=== PATIENT | female | born 1940 | race Caucasian/White ===

== ENCOUNTER → 2016-12-05 | Outpatient (CLI) | payer MEDICARE, BC ==
[2016-12-05 09:22] LABS: Basophils # (A) 0.1 k/uL (0-0.2); Basophils % (A) 1 %; CHCM 34.1; Eosinophils # (A) 0.1 k/uL (0-0.7); Eosinophils % (A) 2 %; HCT 39.6 % (34.0-46.0); HDW 2.78; HGB 13.1 gm/dL (11.4-16.0); Luc # (Auto) 0.18; Luc % (Auto) 3; Lymphocytes # (A) 2.3 k/uL (1.0-4.8); Lymphocytes % (A) 40 %; MCH 29.2 pg (25.0-35.0); MCV 88.6 fL (80.0-100.0); Mean Platelet Volume 7.4; Monocytes # (A) 0.4 k/uL (0-1.0); Monocytes % (A) 6 %; Neutrophils # (A) 2.6 k/uL (1.3-7.7); Neutrophils % (A) 47 %; RBC 4.47 m/uL (3.80-5.40); RDW 12.8 % (11.5-15.5); WBC 5.6 k/uL (3.8-10.6); WBC (Perox) 5.62
[2016-12-05 11:24] LABS: ALT 39 U/L (9-52); AST 26 U/L (14-36); Alkaline Phosphatase 64 U/L (38-126); Anion Gap 7 mmol/L; Blood Urea Nitrogen 10 mg/dL (7-17); C Reactive Protein <5.0 mg/L (<10.0); Calcium 9.3 mg/dL (8.4-10.2); Carbon Dioxide 31 mmol/L (22-30); Chloride 105 mmol/L (98-107); Cholesterol 158 mg/dL (<200); Creatine Kinase 39 U/L (30-135); Glucose 100 mg/dL (74-99); HDL Cholesterol 68 mg/dL (40-60); Non-African American GFR(MDRD) >60 (>60 ml/min/1.73 sqM); Potassium 4.1 mmol/L (3.5-5.1); Sodium 143 mmol/L (137-145); Total Bilirubin 0.6 mg/dL (0.2-1.3); Total Protein 6.7 g/dL (6.3-8.2); Triglycerides 137 mg/dL (<150)
[2016-12-05 11:48] LABS: Erythrocyte Sedimentation Rate 8 mm/hr (0-20)
== END | disposition home or self-care (01) ==
LOC: LABWHC1 08:47
PROVIDERS: ATTEND Internal Medicine
DX: E78.5 Hyperlipidemia, unspecified (principal); E03.9 Hypothyroidism, unspecified; E55.9 Vitamin D deficiency, unspecified; I10 Essential (primary) hypertension
CPT/HCPCS: 36415; 80053; 80061; 82306; 82550; 84443; 85025; 85652; 86140

== ENCOUNTER → 2017-09-19 | Outpatient (CLI) | payer MEDICARE, BC ==
--- NOTE | 2017-09-20 11:50 | MM ---
Reason for exam: screening (asymptomatic). Last mammogram was performed 1 year ago. History: Patient is postmenopausal. Family history of breast cancer in mother at age 70. Took hormonal contraceptives for 10 years beginning at age 25. Physical Findings: A clinical breast exam by your physician is recommended on an annual basis and results should be correlated with mammographic findings. MG 3D Screening Mammo W/Cad Bilateral CC and MLO view(s) were taken. Prior study comparison: September 17, 2016, bilateral MG screening mammo w CAD. September 15, 2015, bilateral MG screening mammo w CAD. The breast tissue is heterogeneously dense. This may lower the sensitivity of mammography. Finding: There are typically benign vascular, diffuse/scattered calcifications in both breasts. No significant changes in finding since September 17, 2016 and September 15, 2015. ASSESSMENT: Benign, BI-RAD 2 RECOMMENDATION: Routine screening mammogram of both breasts in 1 year.
== END | disposition home or self-care (01) ==
LOC: RADMAMWWP 09:38
PROVIDERS: ATTEND Internal Medicine
DX: Z12.31 Encounter for screening mammogram for malignant neoplasm of breast (principal)
CPT/HCPCS: 77063; G0202

== ENCOUNTER → 2018-01-20 | Outpatient (CLI) | payer MEDICARE, BC ==
[2018-01-20 08:29] LABS: Basophils % (A) 1 %; Eosinophils # (A) 0.1 k/uL (0-0.7); Eosinophils % (A) 2 %; HGB 12.3 gm/dL (11.4-16.0); Lymphocytes # (A) 1.9 k/uL (1.0-4.8); Lymphocytes % (A) 40 %; MCH 29.3 pg (25.0-35.0); MCHC 33.3 g/dL (31.0-37.0); MCV 87.9 fL (80.0-100.0); Mean Platelet Volume 7.4; Monocytes # (A) 0.4 k/uL (0-1.0); Monocytes % (A) 8 %; Neutrophils # (A) 2.1 k/uL (1.3-7.7); Neutrophils % (A) 46 %; Platelet Count 201 k/uL (150-450); RBC 4.21 m/uL (3.80-5.40); RDW 12.9 % (11.5-15.5); WBC 4.7 k/uL (3.8-10.6)
[2018-01-20 11:20] LABS: Erythrocyte Sedimentation Rate 7 mm/hr (0-20)
[2018-01-20 11:46] LABS: ALT 28 U/L (9-52); AST 28 U/L (14-36); Albumin 3.7 g/dL (3.5-5.0); Alkaline Phosphatase 58 U/L (38-126); Anion Gap 9 mmol/L; Blood Urea Nitrogen 12 mg/dL (7-17); C Reactive Protein 5.1 mg/L (<10.0); Calcium 9.3 mg/dL (8.4-10.2); Carbon Dioxide 32 mmol/L (22-30); Chloride 104 mmol/L (98-107); Cholesterol 135 mg/dL (<200); Creatine Kinase 87 U/L (30-135); Glucose 92 mg/dL (74-99); HDL Cholesterol 63 mg/dL (40-60); LDL Cholesterol,Calculated 51 mg/dL (0-99); Sodium 145 mmol/L (137-145); Total Bilirubin 0.5 mg/dL (0.2-1.3); Total Protein 6.2 g/dL (6.3-8.2); Triglycerides 103 mg/dL (<150)
== END | disposition home or self-care (01) ==
LOC: LABWHC1 08:05
PROVIDERS: ATTEND Internal Medicine
DX: Z00.00 Encounter for general adult medical examination without abnormal findings (principal); D64.9 Anemia, unspecified; E78.5 Hyperlipidemia, unspecified; I10 Essential (primary) hypertension; E55.9 Vitamin D deficiency, unspecified
CPT/HCPCS: 36415; 80053; 80061; 82306; 82550; 85025; 85652; 86140

== ENCOUNTER 2018-11-19 17:37 | Observation (INO) | payer BC, MEDICARE ==
[2018-11-19] MEDS ORDERED: DEXAMETHASONE 4 MG TAB PO STA (18:07)
[2018-11-19] MEDS ORDERED: IPRATROPIUM-ALBUTEROL 3 ML NEB INHALATION STA ×2 (18:07→19:24)
--- NOTE | 2018-11-19 18:11 | ED ---
General Adult HPI - General Source: patient, EMS, RN notes reviewed Mode of arrival: EMS Limitations: no limitations <Eloise Odom - Last Filed: 11/19/18 21:49> <Zeb Santos - Last Filed: 11/19/18 23:14> - General Chief complaint: Upper Respiratory Infection Stated complaint: Congestion Time Seen by Provider: 11/19/18 17:58 - History of Present Illness Initial comments: Patient is a 78-year-old female who presents the emergency department with complaint of cough and congestion for 3 days. She reports taking cough medicine at home, last dose was about 4 hours ago. She reports calling the EMS because she had mucus stuck in her airway and she was having trouble breathing. She denies any history of pulmonary disease. Patient denies any recent fever, chills, chest pain, back pain, abdominal pain, nausea or vomiting, numbness or tingling, headaches or visual changes, or any other complaints. (Eloise Odom) - Related Data Home Medications Medication Instructions Recorded Confirmed Aspirin [[place] Aspirin EC] 81 mg PO DAILY 11/19/18 11/19/18 Calcium Carbonate [Calcium] 1,200 mg PO DAILY 11/19/18 11/19/18 Metoprolol Succinate [Toprol Xl] 50 mg PO DAILY 11/19/18 11/19/18 Multivitamins, Thera [Multivitamin 1 tab PO DAILY 11/19/18 11/19/18 (formulary)] [place]-3 Fatty Acids/Fish Oil [Fish 1 tab PO DAILY 11/19/18 11/19/18 Oil 1,000 mg Softgel] Simvastatin [Zocor] 20 mg PO HS 11/19/18 11/19/18 Telmisartan [Micardis] 80 mg PO DAILY 11/19/18 11/19/18 amLODIPine [Norvasc] 5 mg PO HS 11/19/18 11/19/18 Allergies Allergy/AdvReac Type Severity Reaction Status Date / Time No Known Allergies Allergy Verified 11/19/18 18:37 Review of Systems ROS Other: All systems not noted in ROS Statement are negative. <Eloise Odom - Last Filed: 11/19/18 21:49> ROS Other: All systems not noted in ROS Statement are negative. <Zeb Santos - Last Filed: 11/19/18 23:14> ROS Statement: Those systems with pertinent positive or pertinent negative responses have been documented in the HPI. Past Medical History Past Medical History: Hypertension History of Any Multi-Drug Resistant Organisms: None Reported Past Surgical History: No Surgical Hx Reported Past Psychological History: No Psychological Hx Reported Smoking Status: Never smoker Past Alcohol Use History: None Reported Past Drug Use History: None Reported <Eloise Odom - Last Filed: 11/19/18 21:49> General Exam Limitations: no limitations General appearance: alert, in no apparent distress Head exam: Present: atraumatic, normocephalic Eye exam: Present: normal appearance, PERRL ENT exam: Present: normal exam, normal oropharynx, TM's normal bilaterally, normal external ear exam Neck exam: Present: normal inspection Respiratory exam: Present: rales (Middle and lower lung warner bilaterally.) Cardiovascular Exam: Present: regular rate, normal rhythm Neurological exam: Present: alert, oriented X3 Psychiatric exam: Present: normal affect, normal mood Skin exam: Present: warm, dry <Eloise Odom E - Last Filed: 11/19/18 21:49> Vital Signs 11/19/18 11/19/18 11/19/18 17:51 18:05 18:51 Temperature 98.6 F Pulse Rate 81 81 Respiratory 20 20 Rate Blood Pressure 138/84 O2 Sat by Pulse 93 L Oximetry 11/19/18 11/19/18 11/19/18 19:01 19:32 19:41 Temperature Pulse Rate 88 80 84 Respiratory Rate Blood Pressure O2 Sat by Pulse Oximetry 11/19/18 11/19/18 20:30 21:25 Temperature Pulse Rate 94 97 Respiratory 18 20 Rate Blood Pressure 138/62 O2 Sat by Pulse 92 L 93 L Oximetry Medical Decision Making <Eloise Odom E - Last Filed: 11/19/18 21:49> - Lab Data Result diagrams: 11/19/18 22:00 11/19/18 22:00 <Zeb Santos - Last Filed: 11/19/18 23:14> - Medical Decision Making DuoNeb 2 and dexamethasone given. Influenza A and B are negative. Rapid strep is negative. Chest x-ray reveals no active cardiopulmonary disease. Patient is hypoxic. Will admit to Dr. Toth. Case discussed in detail with attending physician Dr. Santos. (Eloise Odom) Discussed patient case with Dr. Toth who requested CT angiogram of the chest to rule out pulmonary emboli. No findings of PE on CT angios. (Zeb Santos) - Lab Data Lab Results 11/19/18 11/19/18 11/19/18 Range/Units 19:48 19:48 22:00 WBC 8.2 (3.8-10.6) k/uL RBC 4.33 (3.80-5.40) m/uL Hgb 12.8 (11.4-16.0) gm/dL Hct 37.9 (34.0-46.0) % MCV 87.5 (80.0-100.0) fL MCH 29.6 (25.0-35.0) pg MCHC 33.8 (31.0-37.0) g/dL RDW 13.0 (11.5-15.5) % Plt Count 166 (150-450) k/uL Neutrophils % 91 % Lymphocytes % 6 % Monocytes % 2 % Eosinophils % 0 % Basophils % 0 % Neutrophils # 7.4 (1.3-7.7) k/uL Lymphocytes # 0.5 L (1.0-4.8) k/uL Monocytes # 0.2 (0-1.0) k/uL Eosinophils # 0.0 (0-0.7) k/uL Basophils # 0.0 (0-0.2) k/uL Sodium (137-145) mmol/L Potassium (3.5-5.1) mmol/L Chloride (98-107) mmol/L Carbon Dioxide (22-30) mmol/L Anion Gap mmol/L BUN (7-17) mg/dL Creatinine (0.52-1.04) mg/dL Est GFR (CKD-EPI)AfAm (>60 ml/min/1.73 sqM) Est GFR (CKD-EPI)NonAf (>60 ml/min/1.73 sqM) Glucose (74-99) mg/dL Calcium (8.4-10.2) mg/dL Total Bilirubin (0.2-1.3) mg/dL AST (14-36) U/L ALT (9-52) U/L Alkaline Phosphatase (38-126) U/L Total Protein (6.3-8.2) g/dL Albumin (3.5-5.0) g/dL Influenza Type A RNA Not Detected (Not Detectd) Influenza Type B (PCR) Not Detected (Not Detectd) Group A Strep Rapid Negative (Negative) 11/19/18 Range/Units 22:00 WBC (3.8-10.6) k/uL RBC (3.80-5.40) m/uL Hgb (11.4-16.0) gm/dL Hct (34.0-46.0) % MCV (80.0-100.0) fL MCH (25.0-35.0) pg MCHC (31.0-37.0) g/dL RDW (11.5-15.5) % Plt Count (150-450) k/uL Neutrophils % % Lymphocytes % % Monocytes % % Eosinophils % % Basophils % % Neutrophils # (1.3-7.7) k/uL Lymphocytes # (1.0-4.8) k/uL Monocytes # (0-1.0) k/uL Eosinophils # (0-0.7) k/uL Basophils # (0-0.2) k/uL Sodium 138 (137-145) mmol/L Potassium 3.5 (3.5-5.1) mmol/L Chloride 103 (98-107) mmol/L Carbon Dioxide 24 (22-30) mmol/L Anion Gap 11 mmol/L BUN 13 (7-17) mg/dL Creatinine 0.70 (0.52-1.04) mg/dL Est GFR (CKD-EPI)AfAm >90 (>60 ml/min/1.73 sqM) Est GFR (CKD-EPI)NonAf 83 (>60 ml/min/1.73 sqM) Glucose 171 H (74-99) mg/dL Calcium 9.1 (8.4-10.2) mg/dL Total Bilirubin 0.5 (0.2-1.3) mg/dL AST 26 (14-36) U/L ALT 34 (9-52) U/L Alkaline Phosphatase 76 (38-126) U/L Total Protein 6.2 L (6.3-8.2) g/dL Albumin 3.7 (3.5-5.0) g/dL Influenza Type A RNA (Not Detectd) Influenza Type B (PCR) (Not Detectd) Group A Strep Rapid (Negative) Disposition Is patient prescribed a controlled substance at d/c from ED?: No <Eloise Odom E - Last Filed: 11/19/18 21:49> <Zeb Santos - Last Filed: 11/19/18 23:14> Clinical Impression: Hypoxia Disposition: ADMITTED IP TO THIS HOSP
--- NOTE | 2018-11-19 19:27 | XR ---
EXAMINATION TYPE: XR chest 2V DATE OF EXAM: 11/19/2018 COMPARISON: NONE HISTORY: Cough TECHNIQUE: Frontal and lateral views of the chest are obtained. FINDINGS: Heart size is normal. Lungs are clear. Thoracic aorta is atheromatous. There is no pleural effusion. Bony thorax is intact. There is osteopenia. IMPRESSION: No active cardiopulmonary disease.
[2018-11-19] MEDS ORDERED: NALOXONE 0.4 MG/ML 1 ML VIAL IV PRN (21:34)
[2018-11-19] MEDS ORDERED: ACETAMINOPHEN TAB 325 MG TAB PO PRN (21:41)
[2018-11-19 22:22] LABS: Basophils % (A) 0 %; Eosinophils % (A) 0 %; HCT 37.9 % (34.0-46.0); HGB 12.8 gm/dL (11.4-16.0); Lymphocytes # (A) 0.5 k/uL (1.0-4.8); Lymphocytes % (A) 6 %; MCH 29.6 pg (25.0-35.0); MCHC 33.8 g/dL (31.0-37.0); MCV 87.5 fL (80.0-100.0); Mean Platelet Volume 6.8; Monocytes # (A) 0.2 k/uL (0-1.0); Monocytes % (A) 2 %; Neutrophils # (A) 7.4 k/uL (1.3-7.7); Neutrophils % (A) 91 %; Platelet Count 166 k/uL (150-450); RBC 4.33 m/uL (3.80-5.40); WBC 8.2 k/uL (3.8-10.6)
[2018-11-19 22:47] LABS: ALT 34 U/L (9-52); AST 26 U/L (14-36); Albumin 3.7 g/dL (3.5-5.0); Alkaline Phosphatase 76 U/L (38-126); Anion Gap 11 mmol/L; Blood Urea Nitrogen 13 mg/dL (7-17); Calcium 9.1 mg/dL (8.4-10.2); Carbon Dioxide 24 mmol/L (22-30); Chloride 103 mmol/L (98-107); Glucose 171 mg/dL (74-99); Potassium 3.5 mmol/L (3.5-5.1); Sodium 138 mmol/L (137-145); Total Bilirubin 0.5 mg/dL (0.2-1.3); Total Protein 6.2 g/dL (6.3-8.2)
--- NOTE | 2018-11-19 23:09 | CT ---
EXAMINATION TYPE: CT angio chest DATE OF EXAM: 11/19/2018 10:56 PM COMPARISON: None HISTORY: c/o chest congestion CT DLP: 215.8 mGycm Automated exposure control for dose reduction was used. CONTRAST: CTA scan of the thorax is performed with IV Contrast, patient injected with 67cc mL of Isovue 300, pu lmonary embolism protocol. There are 3-D post processed images.. FINDINGS: There is some minimal subsegmental atelectasis at the lung bases. There is no pleural effusion. There is no pericardial effusion. There is normal contrast opacification of the pulmonary arteries. I see no filling defect. There are no hilar masses. There is no mediastinal adenopathy. Ascending aorta maribel sures 3.6 cm. There is no evidence of aortic aneurysm or dissection. There are numerous variable sized cysts throughout the liver. There is small hiatal hernia. The bony thorax is intact. IMPRESSION: NO EVIDENCE OF PULMONARY EMBOLISM. NUMEROUS HEPATIC CYSTS.
[2018-11-20] MEDS: SODIUM CHLORIDE 0.9% 1,000 ML IV SCH ×3 (02:16→21:41)
[2018-11-20 08:21] LABS: Basophils % (A) 0 %; Eosinophils % (A) 0 %; HCT 40.9 % (34.0-46.0); HGB 13.5 gm/dL (11.4-16.0); Lymphocytes # (A) 0.8 k/uL (1.0-4.8); Lymphocytes % (A) 14 %; MCH 29.5 pg (25.0-35.0); MCHC 33.1 g/dL (31.0-37.0); MCV 89.1 fL (80.0-100.0); Mean Platelet Volume 6.8; Monocytes # (A) 0.2 k/uL (0-1.0); Monocytes % (A) 4 %; Neutrophils # (A) 4.7 k/uL (1.3-7.7); Neutrophils % (A) 81 %; Platelet Count 191 k/uL (150-450); RBC 4.59 m/uL (3.80-5.40); RDW 12.8 % (11.5-15.5); WBC 5.8 k/uL (3.8-10.6)
[2018-11-20 08:50] LABS: ALT 25 U/L (9-52); AST 25 U/L (14-36); Albumin 3.8 g/dL (3.5-5.0); Alkaline Phosphatase 67 U/L (38-126); Anion Gap 9 mmol/L; Blood Urea Nitrogen 14 mg/dL (7-17); Carbon Dioxide 28 mmol/L (22-30); Chloride 105 mmol/L (98-107); Glucose 130 mg/dL (74-99); Potassium 3.8 mmol/L (3.5-5.1); Sodium 142 mmol/L (137-145); Total Bilirubin 0.4 mg/dL (0.2-1.3); Total Protein 6.4 g/dL (6.3-8.2)
[2018-11-20] MEDS ORDERED: NON-FORMULARY DRUG (Omega-3 Fatty Acids/Fish Oil [Fish Oil 1,000 Mg Softgel] 1 TAB) PO SCH (09:00)
[2018-11-20] MEDS ORDERED: LOSARTAN 50 MG TAB PO SCH (09:00)
[2018-11-20] MEDS: CALCIUM CARBONATE 500 MG CHEWABLE PO SCH (10:32)
[2018-11-20] MEDS: METOPROLOL SUCCINATE (ER) 50 MG TAB.ER.24H PO SCH (10:33)
[2018-11-20] MEDS: ASPIRIN 81 MG PO SCH (10:33)
[2018-11-20] MEDS: AZITHROMYCIN 500 MG TAB PO SCH (11:20)
[2018-11-20] MEDS: MULTIVITAMINS, THERA 1 EACH TAB PO SCH (12:38)
[2018-11-20] MEDS ORDERED: ATORVASTATIN 10 MG TAB PO SCH (21:00)
[2018-11-20] MEDS ORDERED: amLODIPine 5 MG TAB PO SCH (21:00)
[2018-11-20] MEDS: BUDESONIDE 0.5 MG/2 ML NEBU INHALATION SCH (21:04)
--- NOTE | 2018-11-20 21:10 | HP ---
HISTORY AND PHYSICAL FULL CODE. Her height is 5 feet 5 inches, weight 57.606 kg, BSA 1.63 m2, BMI is 21.1 kg/m2. ALLERGIES: UNKNOWN. The patient presented to the emergency room, brought by ambulance, with the underlying complaint of cough and congestion for the last 3 days. Four hours prior to presentation she felt that she was choking with mucus secretions in her throat, and her airways have been filling up, obstructed. She called the ambulance. She has no history of lung disease in the past. No fever, no chills, except that recently she has underlying history of upper respiratory tract infection. She denied any abdominal pain or chest pain or chills. No nausea, no vomiting. No numbness, no tingling. No visual changes. But she was significantly short of breath. Her current list of home medications: 1. Amlodipine 5 mg at bedtime. 2. Simvastatin 20 mg at bedtime. 3. Calcium carbonate 1200 mg daily. 4. [place]-3 fatty acids 1000 soft gel once a day. 5. Aspirin 81 mg. 6. Multivitamin 1 a day. 7. Micardis 80 mg daily. 8. Metoprolol succinate 50 mg daily. FAMILY HISTORY: Her and she is a . PAST MEDICAL HISTORY: Hypertension. No surgical history. No psychological history. Never smoked in her life. No illicit drugs or drinking alcohol. REVIEW OF SYSTEMS: Reviewed, 14 points, with no symptoms except feeling the choking in her throat with the secretions and shortness of breath. On her arrival, I did discuss it with the ER physician, and I requested that patient, especially with the sudden onset, to rule out PE and subsequently the patient had CT angiogram. She had CT angiogram and chest x-ray was done prior. The chest x-ray showed no active pulmonary disease to explain the shortness of breath and wheezing. The treatment in the emergency room did not lead to resolution. Subsequently she had inhalation therapy, with no resolution. CT scan of the chest with angiogram was done and there was no evidence of pulmonary embolism; however, they found numerous hepatic cysts. No evidence of aortic aneurysm. They also saw minimal subsegmental atelectasis in the lung bases without effusion and normal contrast opacification of the pulmonary artery. On the physical exam, her vital signs on admission were temperature 97.9, pulse 80 respiratory rate 16 and heart rate was regular sinus. Her blood pressure was 123/62 with the saturation ranging between 92% and 91%. However, it was reported that on admission in the ER, she was hypoxemic with PO2 of 93% on presentation. They considered that low at the time of the presentation. They did laboratory as well and found that potassium was borderline at 3.5, and her estimated glomerular filtration rate was more than 90. Her blood sugar not random 171 and her total protein and albumin were normal and liver enzymes were normal. She was seen first by the PA, Eloise Odom. Her white count on admission was 8.2, hemoglobin 12.8 with hematocrit 37.9. BUN 13, creatinine 0.7, and carbon dioxide 24. Oxygen saturation was 92. They stated that they did several inhalation therapies with DuoNeb, with no improvement, and she was subsequently admitted on observation status. Patient was seen in the morning today on November 20, 2018. The patient was conscious, alert, oriented, in no acute respiratory distress. HEENT: The head was normocephalic, atraumatic, and the oropharynx was negative with dentures. Neck was supple. Normal hearing and no new lymphadenopathy. No JVD. Trachea midline. The chest had minimal scattered wheezes bilaterally and she is using currently the inhalation therapy and we added Pulmicort 0.5 mg nebulizer twice a day to the DuoNeb nebulizer. HEART: PMI in the fifth intercostal space. Normal S1, S2. Vital signs on exam at that time were 115/68 blood pressure with a mean 83. Her temperature was 97 and her pulse rate 77 regular, and respiratory rate was 16, normal, non-labored. Her abdomen was soft. Positive bowel sounds. No organ enlargement. EXTREMITIES: No edema. Positive pulses. ASSESSMENT: 1. Underlying viral syndrome, status post secretion obstruction to the laryngeal area. That was resolved. 2. Underlying acute asthmatic bronchitis secondary to the viral syndrome. PLAN: We will have her on observation today and add the budesonide inhalation twice a day 0.5 mg with the nebulizer. Continue the ambulation as tolerated. Subsequently, if improvement in general, she will be discharged tomorrow. Patient admitted on observation status. MMODL / IJN: [id number] /
[2018-11-20] MEDS ORDERED: guaiFENesin SYRUP 100MG/5ML 200 MG/10 ML CUP PO PRN (21:30)
[2018-11-21 01:48] VITALS: TEMP 98.3
[2018-11-21] MEDS: SODIUM CHLORIDE 0.9% 1,000 ML IV SCH ×2 (02:32→04:54)
[2018-11-21 07:55] VITALS: BP 143/78; RESP 18
[2018-11-21] MEDS ORDERED: LOSARTAN 50 MG TAB PO SCH (09:00)
[2018-11-21] MEDS: BUDESONIDE 0.5 MG/2 ML NEBU INHALATION SCH (09:21)
[2018-11-21 09:33] VITALS: PULSE 72
[2018-11-21] MEDS: AZITHROMYCIN 500 MG TAB PO SCH (09:48)
[2018-11-21] MEDS: ASPIRIN 81 MG PO SCH (09:49)
[2018-11-21] MEDS: MULTIVITAMINS, THERA 1 EACH TAB PO SCH (09:49)
[2018-11-21] MEDS: METOPROLOL SUCCINATE (ER) 50 MG TAB.ER.24H PO SCH (09:49)
[2018-11-21] MEDS: CALCIUM CARBONATE 500 MG CHEWABLE PO SCH (09:49)
[2018-11-21] MEDS ORDERED: ALBUTEROL NEBULIZED 2.5 MG/3 ML INHALATION SCH (12:00)
--- NOTE | 2018-11-21 12:53 | DS ---
DISCHARGE SUMMARY DATA: She is a FULL CODE. Her height is 5 foot 5 inches, weight is 57.606 kg, BSA 1.63 m2, BMI 21.1 kg/m2. Allergy is unknown. FINAL DIAGNOSES: 1. Tracheobronchitis with the increased secretion unable to cough, plugging the upper respiratory tract. 2. Wheezing with the associated asthmatic bronchitis. 3. Underlying hypertension, controlled. 4. Underlying history of asthma. 5. Ambulatory. DISCHARGE MEDICATIONS: 1. Inhaler albuterol 90 mcg 2 puffs q.i.d. 2. Symbicort 160/4.5 mg 2 puffs inhaler twice a day. 3. Azithromycin 500 mg 5 tablets total, once a day. Followup Saturday or Saturday next week. Continue home medication. HOSPITAL COURSE: Patient admitted through the emergency room with underlying mucus, has been started with the upper respiratory tract infection and viral syndrome and she felt at the time that she was unable to expectorate the secretion and felt choking and at that time, she called the ambulance and brought her to the hospital, found that she has hypoxemia as well as they found that she had scattered wheezing. The treated her in the ER with no resolution. Subsequently, called me to admit the patient for observation on the observation status. Patient admitted on observation status, adjusted her medication and inhalation therapy and started also budesonide twice a day nebulizers 0.5 mg and started the azithromycin. Patient was ambulatory and no restriction for movement and subsequently she did well and today stable general condition on November 21, 2018. On the exam on discharge, she has vital signs stable with temperature 98.3, pulse 72, respiratory rate 18 and blood pressure 143/78, and a pulse ox was 94% on room air. Also, her underlying laboratory yesterday when she was she admitted on 2214 hours on November 19, 2018 before midnight and stayed on the and discharge on the . Her white count was normal and hemoglobin stable 13.5, and her liver enzyme was normal and total protein on the 20 of November was 6.4. Had a negative influenza A & B and no strep was present. As patient is stable general condition, discharge home today to follow up on Saturday or Saturday in the office and she was admitted and discharged on observation status. MMODL / IJN: [id number] /
[2018-11-21] MEDS ORDERED: SYMBICORT 160-4.5 MCG INHALER INHALATION SCH (20:00)
== END 2018-11-21 11:24 | disposition home or self-care (01) ==
LOC: EC 17:37 → 4SSUR 22:21
PROVIDERS: ADMIT Internal Medicine; ATTEND Internal Medicine
DX: J20.8 Acute bronchitis due to other specified organisms (principal); J45.998 Other asthma; R09.02 Hypoxemia; I10 Essential (primary) hypertension; Z79.82 Long term (current) use of aspirin; Z79.899 Other long term (current) drug therapy
CPT/HCPCS: 96360; 96361 ×2; 99285; 36415; 94640 ×4; 80053 ×2; 85025 ×2; 87081; 87430; 87502; 71046; 71275; G0378 ×3; J8540; Q9967

== ENCOUNTER → 2019-01-19 | Outpatient (CLI) | payer MEDICARE ==
[2019-01-19 10:51] LABS: Basophils # (A) 0.1 k/uL (0-0.2); Basophils % (A) 1 %; Eosinophils # (A) 0.1 k/uL (0-0.7); Eosinophils % (A) 2 %; HCT 38.3 % (34.0-46.0); Lymphocytes # (A) 1.9 k/uL (1.0-4.8); Lymphocytes % (A) 38 %; MCHC 33.8 g/dL (31.0-37.0); MCV 88.8 fL (80.0-100.0); Mean Platelet Volume 6.5; Monocytes # (A) 0.3 k/uL (0-1.0); Monocytes % (A) 7 %; Neutrophils # (A) 2.5 k/uL (1.3-7.7); Neutrophils % (A) 50 %; Platelet Count 205 k/uL (150-450); RBC 4.32 m/uL (3.80-5.40); RDW 12.9 % (11.5-15.5)
[2019-01-19 13:35] LABS: Erythrocyte Sedimentation Rate 11 mm/hr (0-20)
[2019-01-19 16:52] LABS: Vitamin D 25 Hydroxy 50.5 ng/mL (30.0-100.0)
[2019-01-19 17:08] LABS: Immunoglobulin E 27.5 IU/mL (0.00-114.00)
[2019-01-19 18:28] LABS: C Reactive Protein <0.4 mg/dL (0.0-0.8); Carbon Dioxide 27.9 mmol/L (21.6-31.8); Chloride 108 mmol/L (96-109); Cholesterol 142 mg/dL (0-200); Creatine Kinase 25 U/L (26-186); Glucose 87 mg/dL (70-110); LDL Cholesterol,Calculated 64.8 mg/dL (0.0-131.0); Potassium 4.3 mmol/L (3.5-5.5); Sodium 141 mmol/L (135-145)
[2019-01-19 18:29] LABS: ALT 20 U/L (8-44); AST 24 U/L (13-35); Albumin/Globulin Ratio 2.33 (1.60-3.17); Alkaline Phosphatase 63 U/L (41-126); Calcium 9.4 mg/dL (8.7-10.3); Globulin 1.8 g/dL (1.6-3.3); Phosphorus 3.7 mg/dL (2.4-5.1); Total Bilirubin 0.7 mg/dL (0.3-1.2)
== END ==
LOC: LABWHC1 09:26
PROVIDERS: ATTEND Internal Medicine
DX: J45.909 Unspecified asthma, uncomplicated (principal); I10 Essential (primary) hypertension; E55.9 Vitamin D deficiency, unspecified; J44.9 Chronic obstructive pulmonary disease, unspecified; E78.5 Hyperlipidemia, unspecified
CPT/HCPCS: 36415; 80053; 80061; 82306; 82550; 82785; 83735; 84100; 84443; 85025; 85652; 86140

== ENCOUNTER → 2019-09-23 | Outpatient (CLI) | payer MEDICARE ==
--- NOTE | 2019-09-24 09:26 | MM ---
Reason for exam: screening (asymptomatic). Last mammogram was performed 1 year ago. History: Patient is postmenopausal. Family history of breast cancer in mother at age 70. Took hormonal contraceptives for 10 years beginning at age 25. Physical Findings: A clinical breast exam by your physician is recommended on an annual basis and results should be correlated with mammographic findings. MG 3D Screening Mammo W/Cad Bilateral CC and MLO view(s) were taken. Prior study comparison: September 22, 2018, bilateral MG 3d screening mammo w/cad. September 19, 2017, bilateral MG 3d screening mammo w/cad. The breast tissue is heterogeneously dense. This may lower the sensitivity of mammography. Stable benign calcifications. There is no discrete abnormality. No significant changes when compared with prior studies. ASSESSMENT: Benign, BI-RAD 2 RECOMMENDATION: Routine screening mammogram of both breasts in 1 year.
== END | disposition home or self-care (01) ==
LOC: RADMAMWWP 09:53
PROVIDERS: ATTEND Internal Medicine
DX: Z12.31 Encounter for screening mammogram for malignant neoplasm of breast (principal)
CPT/HCPCS: 77063; 77067

== ENCOUNTER → 2020-04-29 | Outpatient (CLI) | payer MEDICARE ==
[2020-04-29 09:25] LABS: Basophils # (A) 0.1 k/uL (0-0.2); Basophils % (A) 1 %; Eosinophils # (A) 0.1 k/uL (0-0.7); Eosinophils % (A) 1 %; HCT 40.6 % (34.0-46.0); HGB 12.9 gm/dL (11.4-16.0); Lymphocytes # (A) 2.2 k/uL (1.0-4.8); Lymphocytes % (A) 38 %; MCH 28.8 pg (25.0-35.0); MCHC 31.8 g/dL (31.0-37.0); MCV 90.6 fL (80.0-100.0); Mean Platelet Volume 7.2; Monocytes # (A) 0.4 k/uL (0-1.0); Monocytes % (A) 7 %; Neutrophils # (A) 2.8 k/uL (1.3-7.7); Neutrophils % (A) 49 %; Platelet Count 213 k/uL (150-450); RBC 4.48 m/uL (3.80-5.40); RDW 12.7 % (11.5-15.5); WBC 5.7 k/uL (3.8-10.6)
[2020-04-29 12:33] LABS: Erythrocyte Sedimentation Rate 12 mm/hr (0-20)
[2020-04-29 16:53] LABS: ALT 20 U/L (8-44); AST 25 U/L (13-35); African American GFR (CKD) 80.7 (60.0-200.0); Albumin/Globulin Ratio 2.26 (1.60-3.17); Alkaline Phosphatase 73 U/L (41-126); C Reactive Protein <0.4 mg/dL (0.0-0.8); Calcium 9.2 mg/dL (8.7-10.3); Carbon Dioxide 32.8 mmol/L (21.6-31.8); Chloride 104 mmol/L (96-109); Chol/HDL Ratio 2.66; Cholesterol 165 mg/dL (0-200); Globulin 1.9 g/dL (1.6-3.3); Glucose 91 mg/dL (70-110); LDL Cholesterol,Calculated 81.6 mg/dL (0.0-131.0); Non-African American GFR(CKD) 69.6 (60.0-200.0); Potassium 4.2 mmol/L (3.5-5.5); Sodium 141 mmol/L (135-145); Total Bilirubin 0.7 mg/dL (0.3-1.2); Total Protein 6.2 g/dL (6.2-8.2)
[2020-04-29 17:03] LABS: Creatine Kinase 46 U/L (26-186)
== END | disposition home or self-care (01) ==
LOC: LABWHC1 08:43
PROVIDERS: ATTEND Internal Medicine
DX: I10 Essential (primary) hypertension (principal); E87.8 Other disorders of electrolyte and fluid balance, not elsewhere classified; E78.5 Hyperlipidemia, unspecified
CPT/HCPCS: 36415; 80053; 80061; 82550; 85025; 85652; 86140

== ENCOUNTER → 2020-08-09 | Outpatient (CLI) | payer MEDICARE ==
--- NOTE | 2020-08-09 10:24 | XR ---
EXAMINATION TYPE: XR Hip Bilateral Complete DATE OF EXAM: 08/09/2020 COMPARISON: NONE HISTORY: Pain TECHNIQUE: 2 views of each hip is submitted FINDINGS: There is no evidence of erosive change or acute fracture. Mild concentric narrowing of the joint space. No erosive change. Mild hypertrophic change of the acet abulum. Mild diffuse osteopenia. IMPRESSION: 1. 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
== END | disposition home or self-care (01) ==
LOC: RADXRMAIN 09:43
PROVIDERS: ATTEND Internal Medicine
DX: M16.0 Bilateral primary osteoarthritis of hip (principal)
CPT/HCPCS: 73521

== ENCOUNTER → 2020-10-17 | Outpatient (CLI) | payer MEDICARE ==
--- NOTE | 2020-10-18 14:26 | MM ---
Reason for exam: screening (asymptomatic). Last mammogram was performed 1 year and 1 month ago. History: Patient is postmenopausal. Family history of breast cancer in mother at age 70. Took hormonal contraceptives for 10 years beginning at age 25. Physical Findings: A clinical breast exam by your physician is recommended on an annual basis and results should be correlated with mammographic findings. MG 3D Screening Mammo W/Cad Bilateral CC and MLO view(s) were taken. Prior study comparison: September 23, 2019, bilateral MG 3d screening mammo w/cad. September 22, 2018, bilateral MG 3d screening mammo w/cad. The breast tissue is heterogeneously dense. This may lower the sensitivity of mammography. No significant changes when compared with prior studies. ASSESSMENT: Benign, BI-RAD 2 RECOMMENDATION: Routine screening mammogram of both breasts in 1 year.
== END | disposition home or self-care (01) ==
LOC: RADMAMWWP 13:13
PROVIDERS: ATTEND Internal Medicine
DX: Z12.31 Encounter for screening mammogram for malignant neoplasm of breast (principal)
CPT/HCPCS: 77063; 77067

== ENCOUNTER → 2021-05-15 | Outpatient (CLI) | payer MEDICARE ==
[2021-05-15 10:20] LABS: Protein/Creatinine Ratio,Urine 0.213
[2021-05-15 14:37] LABS: Basophils # (A) 0.05 X 10*3/uL (0.00-0.10); Basophils % (A) 0.8 %; Eosinophils # (A) 0.07 X 10*3/uL (0.04-0.35); Eosinophils % (A) 1.1 %; HGB 13.4 g/dL (12.0-15.0); Lymphocytes # (A) 2.47 X 10*3/uL (0.90-5.00); Lymphocytes % (A) 40.6 %; MCH 30.1 pg (27.0-32.0); MCHC 33.5 g/dL (32.0-37.0); MCV 89.9 fL (80.0-97.0); Mean Platelet Volume 10.1 fL (9.5-12.2); Monocytes % (A) 8.2 %; Neutrophils # (A) 2.99 X 10*3/uL (1.80-7.70); Neutrophils % (A) 49.1 %; Platelet Count 219 X 10*3/uL (140-440); RBC 4.45 X 10*6/uL (4.10-5.20); RDW 12.9 % (11.5-14.5); WBC 6.09 X 10*3/uL (4.50-10.00)
[2021-05-15 15:12] LABS: ALT 23 U/L (8-44); AST 29 U/L (13-35); African American GFR (CKD) 80.1 (60.0-200.0); Alkaline Phosphatase 78 U/L (41-126); BUN/Creat Ratio 13.75 Ratio (12.00-20.00); C Reactive Protein <0.4 mg/dL (0.0-0.8); Calcium 9.2 mg/dL (8.7-10.3); Carbon Dioxide 25.2 mmol/L (21.6-31.8); Chloride 108 mmol/L (96-109); Chol/HDL Ratio 2.53; Cholesterol 157 mg/dL (0-200); Creatine Kinase 56 U/L (26-186); Glucose 119 mg/dL (70-110); Non-African American GFR(CKD) 69.1 (60.0-200.0); Potassium 3.7 mmol/L (3.5-5.5); Sodium 144 mmol/L (135-145); Total Bilirubin 0.6 mg/dL (0.3-1.2); Total Protein 6.4 g/dL (6.2-8.2)
[2021-05-15 16:41] LABS: Erythrocyte Sedimentation Rate 10 mm/Hr (0-30)
== END | disposition home or self-care (01) ==
LOC: LABWHC1 08:57
PROVIDERS: ATTEND Internal Medicine
DX: Z00.00 Encounter for general adult medical examination without abnormal findings (principal); I10 Essential (primary) hypertension; E78.5 Hyperlipidemia, unspecified; D64.9 Anemia, unspecified; E55.9 Vitamin D deficiency, unspecified
CPT/HCPCS: 36415; 80053; 80061; 82306; 82550; 82570; 84156; 85025; 85652; 86140

== ENCOUNTER → 2022-02-22 | Outpatient (CLI) | payer MEDICARE ==
--- NOTE | 2022-02-23 12:22 | MM ---
Reason for exam: screening (asymptomatic). Last mammogram was performed 1 year and 4 months ago. History: Patient is postmenopausal. Family history of breast cancer in mother at age 70. Took hormonal contraceptives for 10 years beginning at age 25. Physical Findings: A clinical breast exam by your physician is recommended on an annual basis and results should be correlated with mammographic findings. MG 3D Screening Mammo W/Cad Bilateral CC and MLO view(s) were taken. Prior study comparison: October 17, 2020, bilateral MG 3d screening mammo w/cad. September 23, 2019, bilateral MG 3d screening mammo w/cad. The breast tissue is heterogeneously dense. This may lower the sensitivity of mammography. Finding: There are typically benign vascular, round, linear calcifications in both breasts. There is no discrete abnormality. ASSESSMENT: Benign, BI-RAD 2 RECOMMENDATION: Routine screening mammogram of both breasts in 1 year.
== END | disposition home or self-care (01) ==
LOC: RADMAMWWP 13:13
PROVIDERS: ATTEND Internal Medicine
DX: Z12.31 Encounter for screening mammogram for malignant neoplasm of breast (principal); Z78.0 Asymptomatic menopausal state; Z80.3 Family history of malignant neoplasm of breast
CPT/HCPCS: 77063; 77067

== ENCOUNTER 2022-06-18 16:57 | Observation (INO) | payer OTHER, MEDICARE ==
[2022-06-18 17:16] LABS: Glucose,Whole Blood 96 mg/dL (70-110)
[2022-06-18 17:20] LABS: INR 0.9 (<1.2); Partial Thromboplastin Time 23.7 sec (22.0-30.0)
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
[2022-06-18 17:26] LABS: ALT 19 U/L (4-34); AST 27 U/L (14-36); African American GFR (CKD) 68 (>60 ml/min/1.73 sqM); Albumin 4.1 g/dL (3.5-5.0); Alcohol <10 mg/dL; Alkaline Phosphatase 76 U/L (38-126); Anion Gap 8 mmol/L; Blood Urea Nitrogen 17 mg/dL (7-17); Calcium 9.3 mg/dL (8.4-10.2); Carbon Dioxide 27 mmol/L (22-30); Chloride 101 mmol/L (98-107); Glucose 95 mg/dL (74-99); Non-African American GFR(CKD) 59 (>60 ml/min/1.73 sqM); Potassium 4.1 mmol/L (3.5-5.1); Sodium 136 mmol/L (137-145); Total Bilirubin 0.5 mg/dL (0.2-1.3); Total Protein 6.5 g/dL (6.3-8.2)
[2022-06-18 17:30] LABS: Basophils # (A) 0.1 k/uL (0-0.2); Basophils % (A) 1 %; Eosinophils # (A) 0.1 k/uL (0-0.7); Eosinophils % (A) 1 %; HCT 38.5 % (34.0-46.0); HGB 12.9 gm/dL (11.4-16.0); Lymphocytes # (A) 2.2 k/uL (1.0-4.8); Lymphocytes % (A) 38 %; MCH 29.5 pg (25.0-35.0); MCHC 33.4 g/dL (31.0-37.0); MCV 88.3 fL (80.0-100.0); Mean Platelet Volume 7.1; Monocytes # (A) 0.4 k/uL (0-1.0); Monocytes % (A) 7 %; Neutrophils # (A) 2.9 k/uL (1.3-7.7); Neutrophils % (A) 50 %; Platelet Count 219 k/uL (150-450); RBC 4.36 m/uL (3.80-5.40); RDW 12.3 % (11.5-15.5); WBC 5.9 k/uL (3.8-10.6)
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
[2022-06-18] MEDS ORDERED: KETOROLAC 15 MG/ML 1 ML VIAL IVP STA (19:01)
[2022-06-18] MEDS ORDERED: HYDROmorphone 0.5 MG/0.5 ML SYRINGE IVP PRN (19:04)
[2022-06-18] MEDS ORDERED: ONDANSETRON 4 MG/2 ML VIAL IVP PRN (19:04)
[2022-06-18] MEDS ORDERED: NALOXONE 0.4 MG/ML 1 ML VIAL IV PRN (19:04)
[2022-06-18] MEDS: ACETAMINOPHEN TAB 325 MG TAB PO PRN (22:09)
[2022-06-18] MEDS: SODIUM CHLORIDE 0.9% 1,000 ML IV SCH (22:14)
[2022-06-18 22:36] LABS: Appearance,Urine Clear (Clear); Bilirubin,Urine Negative (Negative); Blood,Urine Negative (Negative); Color,Urine Light Yellow; Glucose,Urine (UA) Negative (Negative); Ketones,Urine 1+ (Negative); Leukocyte Esterase,Urine Negative (Negative); Nitrite,Urine Negative (Negative); Protein,Urine Negative (Negative); Specific Gravity,Urine 1.041 (1.001-1.035); Urobilinogen,Urine <2.0 mg/dL (<2.0)
[2022-06-18 22:51] LABS: Amphetamine Screen,Urine Not Detected (NotDetected); Barbiturate Screen,Urine Not Detected (NotDetected); Benzodiazepines Screen,Urine Not Detected (NotDetected); Cocaine Screen,Urine Not Detected (NotDetected); Methadone Screen, Urine Not Detected (NotDetected); Opiate Screen,Urine Not Detected (NotDetected); Oxycodone Screen, Urine Not Detected (NotDetected); Phencyclidine Screen,Urine Not Detected (NotDetected); Tricyclic Antidepressant,Urine Not Detected (NotDetected); Urn Cannabinoid Scrn Not Detected (NotDetected)
[2022-06-19] MEDS: ACETAMINOPHEN TAB 325 MG TAB PO PRN ×2 (04:09→20:06)
[2022-06-19] MEDS ORDERED: hydroCHLOROthiazide 12.5 MG CAP PO SCH (10:00)
[2022-06-19] MEDS: LOSARTAN 50 MG TAB PO SCH ×2 (10:32→10:37)
[2022-06-19] MEDS: SODIUM CHLORIDE 0.9% 1,000 ML IV SCH (10:33)
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
[2022-06-19] MEDS ORDERED: METOPROLOL SUCCINATE (ER) 50 MG TAB.ER.24H PO SCH (14:00)
[2022-06-19] MEDS ORDERED: HYDROcodone/APAP 5-325MG 1 EACH TAB PO PRN (15:21)
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
[2022-06-19] MEDS: KETOROLAC 15 MG/ML 1 ML VIAL IVP SCH ×2 (17:03→23:02)
[2022-06-19] MEDS ORDERED: ASPIRIN 81 MG PO SCH (18:30)
[2022-06-19] MEDS ORDERED: PANTOPRAZOLE 40 MG TABLET PO SCH (18:30)
[2022-06-19] MEDS ORDERED: CALCIUM CARBONATE 500 MG CHEWABLE PO SCH (18:30)
[2022-06-19] MEDS ORDERED: NON FORMULARY DRUG (Omega-3 Fatty Acids/Fish Oil [Fish Oil 1,000 Mg Softgel] 1 EACH Capsul PO SCH (18:30)
[2022-06-19] MEDS ORDERED: MULTIVITAMINS, THERA 1 EACH TAB PO SCH (18:30)
[2022-06-19] MEDS: HEPARIN SODIUM,PORCINE/PF 5,000 UNIT/0.5 ML SYRINGE SQ SCH (20:07)
[2022-06-19] MEDS ORDERED: ATORVASTATIN 10 MG TAB PO SCH (21:00)
[2022-06-19] MEDS ORDERED: CALCIUM CARBONATE 500 MG CHEWABLE PO PRN (22:29)
[2022-06-20] MEDS: SODIUM CHLORIDE 0.9% 1,000 ML IV SCH (05:34)
[2022-06-20] MEDS: ACETAMINOPHEN TAB 325 MG TAB PO PRN (06:18)
[2022-06-20] MEDS: KETOROLAC 15 MG/ML 1 ML VIAL IVP SCH ×2 (06:18→12:51)
[2022-06-20] MEDS ORDERED: PANTOPRAZOLE 40 MG TABLET PO SCH (07:30)
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
[2022-06-20] MEDS ORDERED: LOSARTAN 50 MG TAB PO SCH (09:00)
[2022-06-20 10:21] VITALS: TEMP 98.3
[2022-06-20 10:24] LABS: HCT 36.7 % (34.0-46.0); MCH 29.5 pg (25.0-35.0); MCHC 32.8 g/dL (31.0-37.0); MCV 90.1 fL (80.0-100.0); Mean Platelet Volume 7.3; Platelet Count 193 k/uL (150-450); RBC 4.07 m/uL (3.80-5.40); RDW 12.6 % (11.5-15.5); WBC 6.7 k/uL (3.8-10.6)
[2022-06-20] MEDS: HEPARIN SODIUM,PORCINE/PF 5,000 UNIT/0.5 ML SYRINGE SQ SCH (10:27)
[2022-06-20 10:34] LABS: Calcium 8.7 mg/dL (8.4-10.2); Potassium 3.7 mmol/L (3.5-5.1)
[2022-06-20 12:53] VITALS: BP 162/76; PULSE 72; RESP 18
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
== END 2022-06-20 16:03 | disposition home or self-care (01) ==
LOC: EC 16:57 → 3SCARD 19:04
PROVIDERS: ADMIT Surgery; ATTEND Surgery
DX: S22.20XA Unspecified fracture of sternum, initial encounter for closed fracture (principal); I10 Essential (primary) hypertension; E78.5 Hyperlipidemia, unspecified; E86.0 Dehydration; Z71.9 Counseling, unspecified; V48.5XXA Car driver injured in noncollision transport accident in traffic accident, initial encounter; Y92.410 Unspecified street and highway as the place of occurrence of the external cause; Z79.82 Long term (current) use of aspirin; Z79.899 Other long term (current) drug therapy; Z79.51 Long term (current) use of inhaled steroids; Z83.3 Family history of diabetes mellitus; Z82.49 Family history of ischemic heart disease and other diseases of the circulatory system; Z80.3 Family history of malignant neoplasm of breast
CPT/HCPCS: 96376 ×2; 96372 ×2; 96375; 96374; 99291; 36415; 86900; 86901; 80053; 80048; 84484; 85025; 85027; 85610; 85730; 86850; 81003; 80306; 80320; 72170; 71045; 71046; 72125; 70450; 71260; 74177; G0378 ×3; J2405; J1885 ×3; J1170; Q9967; J1644 ×2

== ENCOUNTER → 2022-07-06 | Outpatient (CLI) | payer MEDICARE ==
[2022-07-06 14:28] LABS: Basophils # (A) 0.06 X 10*3/uL (0.00-0.10); Basophils % (A) 1.2 %; Eosinophils # (A) 0.04 X 10*3/uL (0.04-0.35); Eosinophils % (A) 0.8 %; HCT 36.3 % (37.2-46.3); Immature Grans, Automated 0.2 %; Lymphocytes # (A) 1.71 X 10*3/uL (0.90-5.00); Lymphocytes % (A) 33.5 %; MCH 29.6 pg (27.0-32.0); MCHC 33.1 g/dL (32.0-37.0); MCV 89.6 fL (80.0-97.0); Mean Platelet Volume 9.6 fL (9.5-12.2); Monocytes # (A) 0.48 X 10*3/uL (0.20-1.00); Monocytes % (A) 9.4 %; NRBC Per 100 WBC 0 /100 WBCS (0.0-0.0); Neutrophils # (A) 2.81 X 10*3/uL (1.80-7.70); Neutrophils % (A) 54.9 %; Platelet Count 271 X 10*3/uL (140-440); RBC 4.05 X 10*6/uL (4.10-5.20); RDW 13.3 % (11.5-14.5); WBC 5.11 X 10*3/uL (4.50-10.00)
[2022-07-06 14:56] LABS: Erythrocyte Sedimentation Rate 7 mm/Hr (0-30)
[2022-07-06 16:15] LABS: ALT 19 U/L (8-44); AST 20 U/L (13-35); African American GFR (CKD) 79.6 (60.0-200.0); Albumin 4.4 g/dL (3.8-4.9); Albumin/Globulin Ratio 2.32 (1.60-3.17); Alkaline Phosphatase 79 U/L (41-126); BUN/Creat Ratio 15.63 Ratio (12.00-20.00); Blood Urea Nitrogen 12.5 mg/dL (9.0-27.0); C Reactive Protein <0.30 mg/dL (0.00-0.80); Calcium 9.4 mg/dL (8.7-10.3); Carbon Dioxide 26.9 mmol/L (20.0-27.5); Chloride 103 mmol/L (96-109); Creatine Kinase 39 U/L (26-186); Globulin 1.9 g/dL (1.6-3.3); Glucose 93 mg/dL (70-110); Magnesium 1.9 mg/dL (1.5-2.4); Non-African American GFR(CKD) 68.7 (60.0-200.0); Phosphorus 3.2 mg/dL (2.4-5.1); Sodium 141 mmol/L (135-145); Total Protein 6.3 g/dL (6.2-8.2)
[2022-07-06 16:30] LABS: Chol/HDL Ratio 2.29 Ratio; LDL Cholesterol,Calculated 59.3 mg/dL (0.0-131.0); VLDL Calculation 16.72 mg/dL (5.00-40.00)
== END | disposition home or self-care (01) ==
LOC: LABWHC1 09:45
PROVIDERS: ATTEND Internal Medicine
DX: Z00.00 Encounter for general adult medical examination without abnormal findings (principal); I10 Essential (primary) hypertension; D64.9 Anemia, unspecified; E87.8 Other disorders of electrolyte and fluid balance, not elsewhere classified; E78.5 Hyperlipidemia, unspecified; E55.9 Vitamin D deficiency, unspecified
CPT/HCPCS: 36415; 80053; 80061; 82306; 82550; 83735; 84100; 84443; 85025; 85652; 86140

== ENCOUNTER → 2023-03-05 | Outpatient (CLI) | payer MEDICARE ==
--- NOTE | 2023-03-06 08:29 | MM ---
Reason for Exam: Screening (asymptomatic). Last screening mammogram was performed 12 month(s) ago. Patient History: Menarche at age 13. First Full-Term at age 20. Postmenopausal. Hormonal Contraceptives for 10 years from age 25 until age 35. Mother had breast cancer, age 70. Risk Values: [place] 5 year model risk: 2.6%. NCI Lifetime model risk: 3.2%. Prior Study Comparison: 09/23/2019 Bilateral Screening Mammogram, [facility]. 10/17/2020 Bilateral Screening Mammogram, [facility]. 02/22/2022 Bilateral Screening Mammogram, [facility]. Tissue Density: The breast tissue is heterogeneously dense. This may lower the sensitivity of mammography. Findings: Analyzed By CAD. There are benign-appearing small round and vascular calcifications bilaterally redemonstrated. There is no suspicious group of microcalcifications or new suspicious mass in either breast. Overall Assessment: Benign, BI-RAD 2 Management: Screening Mammogram of both breasts in 1 year. A clinical breast exam by your physician is recommended on an annual basis and results should be correlated with mammographic findings. Electronically signed and approved by: Duy Mondragon M.D.
== END | disposition home or self-care (01) ==
LOC: RADMAMWWP 12:51
PROVIDERS: ATTEND Internal Medicine
DX: Z12.31 Encounter for screening mammogram for malignant neoplasm of breast (principal); Z78.0 Asymptomatic menopausal state; Z80.3 Family history of malignant neoplasm of breast
CPT/HCPCS: 77063; 77067

== ENCOUNTER → 2024-03-06 | Outpatient (CLI) | payer MEDICARE ==
--- NOTE | 2024-03-06 15:41 | XR ---
Lumbar spine HISTORY: Back pain and right leg pain. COMPARISON: None. TECHNIQUE: 4 6 views of the lumbar spine were obtained. EYES: An AP view there is moderate to marked levorotoscoliosis of the lumbar spine. On the lateral projecti on, the lumbar vertebral segments are normal in height and alignment and there is no fracture or subl uxation. There is mild disc space narrowing and spondylosis at the L1-2 and L2-3 levels. There is moderate dis c space narrowing and spondylosis at the L3-4, L4-5 and L5-S1 levels. There is mild to moderate osteoarthritic changes of facet joints at the L4-5 and L5-S1 levels. There is no spondylolysis. The visualized sacrum and SI joints are normal. IMPRESSION: 1. 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 2. No lumbar spine fracture or malalignment. 3. Multilevel degenerative disease, mild in the upper lumbar spine and moderate in the lower lumbar spine. 4. No spondylolysis. Mild to moderate facet degeneration in the lower lumbar spine.
--- NOTE | 2024-03-06 15:43 | XR ---
Right hip. HISTORY: Hip pain. COMPARISON: 08/09/2020. TECHNIQUE: 2 views of the right hip were obtained. FINDINGS: There is no fracture, dislocation, interosseous, intra-articular or soft tissue abnormality. IMPRESSION: No significant abnormality seen.
== END | disposition home or self-care (01) ==
LOC: RADXRMAIN 13:22
PROVIDERS: ATTEND Internal Medicine
DX: M51.36 Other intervertebral disc degeneration, lumbar region (principal); M79.604 Pain in right leg; M16.11 Unilateral primary osteoarthritis, right hip; M87.051 Idiopathic aseptic necrosis of right femur
CPT/HCPCS: 72110; 73502

== ENCOUNTER → 2024-03-06 | Outpatient (CLI) | payer MEDICARE ==
[2024-03-06 18:57] LABS: Alkaline Phosphatase 98 U/L (41-126); Rheumatoid Factor, Qnt <15 IU/mL (0-15)
[2024-03-06 21:48] LABS: Anti-DNA, DS unit <1.0 IU/mL; DNA Double-Stranded Negative (Negative)
[2024-03-06 23:50] LABS: Cyclic Citrull Pep IgG Unit <1.5 U/mL (<=3.9); Cyclic Citrullinated Pep IgG Negative
== END | disposition home or self-care (01) ==
LOC: LABWHC1 13:13
PROVIDERS: ATTEND Internal Medicine
DX: M81.0 Age-related osteoporosis without current pathological fracture (principal); M51.9 Unspecified thoracic, thoracolumbar and lumbosacral intervertebral disc disorder; M79.604 Pain in right leg; M16.11 Unilateral primary osteoarthritis, right hip; M87.051 Idiopathic aseptic necrosis of right femur
CPT/HCPCS: 36415; 84075; 85652; 86038; 86200; 86225; 86431

== ENCOUNTER → 2024-03-09 | Outpatient (CLI) | payer MEDICARE ==
--- NOTE | 2024-03-11 10:07 | MM ---
Reason for Exam: Screening (asymptomatic). Last screening mammogram was performed 12 month(s) ago. Patient History: Menarche at age 13. First Full-Term at age 20. Postmenopausal. Hormonal Contraceptives for 10 years from age 25 until age 35. Mother had breast cancer, age 70. Risk Values: Sydney 5 year model risk: 2.4%. NCI Lifetime model risk: 2.7%. Prior Study Comparison: 10/17/2020 Bilateral Screening Mammogram, [facility]. 02/22/2022 Bilateral Screening Mammogram, [facility]. 03/05/2023 Bilateral MG 3D screening mammo w/cad, [facility]. Tissue Density: The breasts are heterogeneously dense, which may obscure small masses. Findings: Analyzed By CAD. Right breast: There is no suspicious group of microcalcifications or new suspicious mass. Left breast: There is no suspicious group of microcalcifications or new suspicious mass. Overall Assessment: Negative, BI-RAD 1 Management: Screening Mammogram of both breasts in [address] [facility] will attempt to contact patient to return for supplemental views and ultrasound if indicated. Patient should continue monthly self-breast exams. A clinical breast exam by your physician is recommended on an annual basis. This exam should not preclude additional follow-up of suspicious palpable abnormalities. Note on Sydney scores and lifetime risk: 1. A Sydney score greater than 3% is considered moderate risk. If this is the case, consider specialist referral to assess eligibility for a risk reducing agent. 2. If overall lifetime risk for the development of breast cancer is 20% or higher, the patient may qualify for future screening with alternating mammogram and breast MRI. Electronically signed and approved by: Dereck Cool DO
== END | disposition home or self-care (01) ==
LOC: RADMAMWWP 13:21
PROVIDERS: ATTEND Internal Medicine
DX: Z12.31 Encounter for screening mammogram for malignant neoplasm of breast (principal); Z80.3 Family history of malignant neoplasm of breast; Z78.0 Asymptomatic menopausal state
CPT/HCPCS: 77063; 77067

== ENCOUNTER 2024-03-22 18:08 | Emergency (ER) | payer MEDICARE ==
--- NOTE | 2024-03-22 18:31 | ED ---
Recheck HPI - General Source: patient, RN notes reviewed Mode of arrival: ambulatory Limitations: no limitations <Evelina Zhou - Last Filed: 03/22/24 18:31> <Dereck Obrien - Last Filed: 03/22/24 22:50> - General Chief Complaint: Recheck/Abnormal Lab/Rx Stated Complaint: High blood pressure Time Seen by Provider: 03/22/24 18:31 - History of Present Illness Initial Comments: Quick note: 83-year-old female presented to the ER with a chief complaint of elevated blood pressure. Patient states that she has been monitoring her blood pressure at home as her doctor told her to do so. Earlier today she found her systolic to be 198 which brought her to the ER. Patient denies any dizziness, lightheadedness, chest pain, shortness of breath. Patient is on antihypertensive medications last dose this morning. (Evelina Zhou) 83-year-old female history of hypertension with recent medication change, changed her blood pressure pills within the last 1 to 2 weeks. She has been monitoring her blood pressure and noted it to be high. Without complaint, no headache, no chest pain, no focal numbness or weakness. No vomiting. No fever. (Dereck Obrien) - Related Data Home Medications Medication Instructions Recorded Confirmed Aspirin [[place] Aspirin EC] 81 mg PO PC-SUPPER 11/19/18 06/18/22 Metoprolol Succinate [Toprol Xl] 50 mg PO DAILY@1400 11/19/18 06/18/22 Multivitamins, Thera [Multivitamin 1 tab PO PC-SUPPER 11/19/18 06/18/22 (formulary)] [place]-3 Fatty Acids/Fish Oil [Fish 1 tab PO PC-SUPPER 11/19/18 06/18/22 Oil 1,000 mg Softgel] Simvastatin [Zocor] 20 mg PO HS 11/19/18 06/18/22 Telmisartan [Micardis] 80 mg PO DAILY 11/19/18 06/18/22 Calcium Carbonate [Calcium] 600 mg PO PC-SUPPER 06/18/22 06/18/22 Omeprazole 20 mg PO PC-SUPPER 06/18/22 06/18/22 hydroCHLOROthiazide 12.5 mg PO Q48H 06/18/22 06/18/22 Previous Rx's Medication Instructions Recorded Acetaminophen Tab [Tylenol] 1,000 mg PO Q6HR PRN #30 tablet 06/20/22 Ibuprofen [Motrin] 600 mg PO Q8HR PRN #30 tab 06/20/22 Allergies Allergy/AdvReac Type Severity Reaction Status Date / Time No Known Allergies Allergy Verified 03/22/24 18:19 Review of Systems ROS Other: All systems not noted in ROS Statement are negative. <Evelina Zhou - Last Filed: 03/22/24 18:31> ROS Other: All systems not noted in ROS Statement are negative. <Dereck Obrien - Last Filed: 03/22/24 22:50> ROS Statement: Those systems with pertinent positive or pertinent negative responses have been documented in the HPI. Past Medical History Past Medical History: Hyperlipidemia, Hypertension History of Any Multi-Drug Resistant Organisms: None Reported Past Surgical History: Tubal Ligation Past Anesthesia/Blood Transfusion Reactions: No Reported Reaction Past Psychological History: No Psychological Hx Reported Smoking Status: Never smoker Past Alcohol Use History: None Reported Past Drug Use History: None Reported - Past Family History Mother Family Medical History: Cancer (Breast cancer), Chest Pain / Angina, Diabetes Mellitus, Myocardial Infarction ([place]) Father Family Medical History: Cancer, Diabetes Mellitus, Myocardial Infarction ([place]) Sister(s) Family Medical History: Diabetes Mellitus <Evelina Zhou - Last Filed: 03/22/24 18:31> General Exam Limitations: no limitations <Evelina Zhou - Last Filed: 03/22/24 18:31> General appearance: alert, in no apparent distress Head exam: Present: atraumatic, normocephalic Eye exam: Present: normal appearance, PERRL ENT exam: Present: normal exam Neck exam: Present: normal inspection. Absent: tenderness, meningismus Respiratory exam: Present: normal lung sounds bilaterally. Absent: respiratory distress, wheezes Cardiovascular Exam: Present: regular rate, normal rhythm GI/Abdominal exam: Present: soft. Absent: distended, tenderness, guarding Extremities exam: Present: normal inspection Neurological exam: Present: alert, oriented X3, CN II-XII intact. Absent: motor sensory deficit Psychiatric exam: Present: normal affect, normal mood Skin exam: Present: warm, dry, intact <Dereck Obrien - Last Filed: 03/22/24 22:50> - General Exam Comments Initial Comments: Visual Physical Exam Vital signs reviewed General: Well-appearing, nontoxic, no acute distress. Head: Normocephalic, atraumatic Eyes: PERRLA, EOMI ENT: Airway patent Chest: Nonlabored breathing Skin: No visual rash, normal skin tone Neuro: Alert and oriented 3 Musculoskeletal: No gross abnormalities (Evelina Zhou) Course Vital Signs 03/22/24 03/22/24 18:16 20:51 Temperature 98.6 F Pulse Rate 64 67 Respiratory 16 18 Rate Blood Pressure 196/88 199/85 O2 Sat by Pulse 94 L 97 Oximetry Medical Decision Making <Evelina Zhou - Last Filed: 03/22/24 18:31> - Lab Data Result diagrams: 03/22/24 21:30 03/22/24 21:30 <Dereck Obrien - Last Filed: 03/22/24 22:50> - Medical Decision Making I performed the quick note portion of this chart. Electronically signed by Evelina Zhou PA-C (Evelina Zhou) Was pt. sent in by a medical professional or institution (SAUMYA Gaitan, MECHANICAL SERVICE TECHNICIAN, urgent care, hospital, or [facility]...) When possible be specific @ -No Did you speak to anyone other than the patient for history (EMS, parent, family, police, friend...)? What history was obtained from this source @ -[Additional history obtained from the daughter who is at bedside Did you review nursing and triage notes (agree or disagree)? Why? @ -I reviewed and agree with nursing and triage notes Were old charts reviewed (outside hosp., previous admission, EMS record, old EKG, old radiological studies, urgent care reports/EKG's, [facility] records)? Report findings @ -No old charts were reviewed Differential Diagnosis (asymptomatic hypertension, hypertensive urgency, hyperte nsive emergency @ -Not applicable EKG interpreted by me (3pts min.). @ -EKG: Sinus rhythm rate of 63, HI interval 169, QRS duration 86, QTc [address] segment elevation. X-rays interpreted by me (1pt min.). @ -None done CT interpreted by me (1pt min.). @ -None done U/S interpreted by me (1pt. min.). @ -None done What testing was considered but not performed or refused? (CT, X-rays, U/S, labs)? Why? @ -None What meds were considered but not given or refused? Why? @ -None Did you discuss the management of the patient with other professionals (professionals i.e. , PA, MECHANICAL SERVICE TECHNICIAN, lab, RT, psych nurse, social services, lance crewmember, teacher, control officer, case hardener)? Give summary @ -No Was smoking cessation discussed for >3mins.? @ -No Was critical care preformed (if so, how long)? @ -No Were there social determinants of health that impacted care today? How? (Homelessness, low income, unemployed, alcoholism, drug addiction, transportation, low edu. Level, literacy, decrease access to med. care, usp, rehab)? @ -No Was there de-escalation of care discussed even if they declined (Discuss DNR or withdrawal of care, Hospice)? DNR status @ -No What co-morbidities impacted this encounter? (DM, HTN, Smoking, COPD, CAD, Cancer, CVA, ARF, Chemo, Hep., AIDS, mental health diagnosis, sleep apnea, morbid obesity)? @ -Hypertension, hyperlipidemia Was patient admitted / discharged? Hospital course, mention meds given and route, prescriptions, significant lab abnormalities, going to OR and other pertinent info. @ -[83-year-old female with elevated blood pressure, recent blood pressure me dication change currently on metoprolol and losartan 100 mg. Patient without specific complaint. Blood pressure elevated in the emergency department, EKG sinus rhythm without ischemic changes. Patient has normal laboratory test including CBC, CMP, troponin. She will continue to monitor her blood pressure and follow closely with her primary care provider. Return parameters discussed including chest pain, stroke symptoms, abdominal pain. Undiagnosed new problem with uncertain prognosis? @ -No Drug Therapy requiring intensive monitoring for toxicity (Heparin, Nitro, Insulin, Cardizem)? @ -No Were any procedures done? @ -No Diagnosis/symptom? @ -Asymptomatic hypertension Acute, or Chronic, or Acute on Chronic? @ -[Chronic Uncomplicated (without systemic symptoms) or Complicated (systemic symptoms)? @ -Default Side effects of treatment? @ -No Exacerbation, Progression, or Severe Exacerbation? @ -No Poses a threat to life or bodily function? How? (Chest pain, [place], [place], pneumonia, PE, COPD, DKA, ARF, appy, cholecystitis, CVA, Diverticulitis, Homicidal, Suicidal, threat to staff... and all critical care pts) @ -[Low risk at this time (Dereck Obrien) - Lab Data Lab Results 03/22/24 03/22/24 03/22/24 Range/Units 21:30 21:30 21:30 WBC 6.7 (3.8-10.6) k/uL RBC 4.34 (3.80-5.40) m/uL Hgb 12.7 (11.4-16.0) gm/dL Hct 37.6 (34.0-46.0) % MCV 86.6 (80.0-100.0) fL MCH 29.2 (25.0-35.0) pg MCHC 33.7 (31.0-37.0) g/dL RDW 13.0 (11.5-15.5) % Plt Count 220 (150-450) k/uL MPV 7.7 Neutrophils % 52 % Lymphocytes % 35 % Monocytes % 6 % Eosinophils % 2 % Basophils % 1 % Neutrophils # 3.5 (1.3-7.7) k/uL Lymphocytes # 2.4 (1.0-4.8) k/uL Monocytes # 0.4 (0-1.0) k/uL Eosinophils # 0.1 (0-0.7) k/uL Basophils # 0.1 (0-0.2) k/uL Sodium 139 (137-145) mmol/L Potassium 4.4 (3.5-5.1) mmol/L Chloride 109 H (98-107) mmol/L Carbon Dioxide 23 (22-30) mmol/L Anion Gap 7 mmol/L BUN 22 H (7-17) mg/dL Creatinine 0.57 (0.52-1.04) mg/dL Est GFR (CKD-EPI)AfAm >90 (>60 ml/min/1.73 sqM) Est GFR (CKD-EPI)NonAf 86 (>60 ml/min/1.73 sqM) Glucose 94 (74-99) mg/dL Calcium 10.0 (8.4-10.2) mg/dL Magnesium 1.9 (1.6-2.3) mg/dL Total Bilirubin 0.6 (0.2-1.3) mg/dL AST 29 (14-36) U/L ALT 18 (4-34) U/L Alkaline Phosphatase 79 (38-126) U/L Troponin I (0.000-0.034) ng/mL Total Protein 6.4 (6.3-8.2) g/dL Albumin 3.9 (3.5-5.0) g/dL 03/22/24 Range/Units 21:30 WBC (3.8-10.6) k/uL RBC (3.80-5.40) m/uL Hgb (11.4-16.0) gm/dL Hct (34.0-46.0) % MCV (80.0-100.0) fL MCH (25.0-35.0) pg MCHC (31.0-37.0) g/dL RDW (11.5-15.5) % Plt Count (150-450) k/uL MPV Neutrophils % % Lymphocytes % % Monocytes % % Eosinophils % % Basophils % % Neutrophils # (1.3-7.7) k/uL Lymphocytes # (1.0-4.8) k/uL Monocytes # (0-1.0) k/uL Eosinophils # (0-0.7) k/uL Basophils # (0-0.2) k/uL Sodium (137-145) mmol/L Potassium (3.5-5.1) mmol/L Chloride (98-107) mmol/L Carbon Dioxide (22-30) mmol/L Anion Gap mmol/L BUN (7-17) mg/dL Creatinine (0.52-1.04) mg/dL Est GFR (CKD-EPI)AfAm (>60 ml/min/1.73 sqM) Est GFR (CKD-EPI)NonAf (>60 ml/min/1.73 sqM) Glucose (74-99) mg/dL Calcium (8.4-10.2) mg/dL Magnesium (1.6-2.3) mg/dL Total Bilirubin (0.2-1.3) mg/dL AST (14-36) U/L ALT (4-34) U/L Alkaline Phosphatase (38-126) U/L Troponin I <0.012 (0.000-0.034) ng/mL Total Protein (6.3-8.2) g/dL Albumin (3.5-5.0) g/dL Disposition <Evelina Zhou - Last Filed: 03/22/24 18:31> Is patient prescribed a controlled substance at d/c from ED?: No Time of Disposition: 22:50 <Dereck Obrien - Last Filed: 03/22/24 22:50> Clinical Impression: Hypertension Disposition: HOME SELF-CARE Condition: Fair Instructions (If sedation given, give patient instructions): Chronic Hypertension (ED) Additional Instructions: Please inform your primary care provider of your elevated blood pressure. Pl ease return with development of chest pain, severe headache, numbness or weakness to the extremities, or stroke symptoms. Referrals: Rogerio Toth MD [Primary Care Provider] - 1-2 days
[2024-03-22 18:53] VITALS: TEMP 98.6
[2024-03-22 20:52] VITALS: RESP 18
[2024-03-22] MEDS: SODIUM CHLORIDE 0.9% 500 ML 500 ML IV ONE (21:39)
[2024-03-22 22:01] LABS: Basophils # (A) 0.1 k/uL (0-0.2); Basophils % (A) 1 %; Eosinophils # (A) 0.1 k/uL (0-0.7); Eosinophils % (A) 2 %; HCT 37.6 % (34.0-46.0); HGB 12.7 gm/dL (11.4-16.0); Lymphocytes # (A) 2.4 k/uL (1.0-4.8); Lymphocytes % (A) 35 %; MCH 29.2 pg (25.0-35.0); MCHC 33.7 g/dL (31.0-37.0); MCV 86.6 fL (80.0-100.0); Mean Platelet Volume 7.7; Monocytes # (A) 0.4 k/uL (0-1.0); Monocytes % (A) 6 %; Neutrophils # (A) 3.5 k/uL (1.3-7.7); Neutrophils % (A) 52 %; Platelet Count 220 k/uL (150-450); RBC 4.34 m/uL (3.80-5.40); WBC 6.7 k/uL (3.8-10.6)
[2024-03-22 22:16] LABS: ALT 18 U/L (4-34); AST 29 U/L (14-36); African American GFR (CKD) >90 (>60 ml/min/1.73 sqM); Albumin 3.9 g/dL (3.5-5.0); Alkaline Phosphatase 79 U/L (38-126); Anion Gap 7 mmol/L; Blood Urea Nitrogen 22 mg/dL (7-17); Carbon Dioxide 23 mmol/L (22-30); Chloride 109 mmol/L (98-107); Glucose 94 mg/dL (74-99); Non-African American GFR(CKD) 86 (>60 ml/min/1.73 sqM); Potassium 4.4 mmol/L (3.5-5.1); Sodium 139 mmol/L (137-145); Total Bilirubin 0.6 mg/dL (0.2-1.3); Total Protein 6.4 g/dL (6.3-8.2)
[2024-03-22 23:45] VITALS: BP 152/72; PULSE 86
== END 2024-03-22 23:08 | disposition home or self-care (01) ==
LOC: EC 18:08
DX: I10 Essential (primary) hypertension (principal)
CPT/HCPCS: 36415; 80053; 83735; 84484; 85025; 93005; 99284

== ENCOUNTER 2024-04-09 09:42 | Emergency (ER) | payer MEDICARE ==
--- NOTE | 2024-04-09 10:09 | ED ---
General Adult HPI - General Chief complaint: GI Bleed Stated complaint: Blood in Stool Time Seen by Provider: 04/09/24 09:45 Source: patient, EMS Mode of arrival: EMS Limitations: no limitations - History of Present Illness Initial comments: Dictation was produced using [employer] dictation software. please excuse any grammatical, word or spelling errors. Chief Complaint: 83-year-old female presents to the emergency department abdominal pain and GI bleed History of Present Illness: Patient is 83-year-old female she went to bed in her usual state of health yesterday. She woke up at around 6:00 AM this morning sat on the toilet. She states that she was having trouble passing stool. She noticed that there was some drops of blood in the toilet. She does not take any anticoagulation medications. Patient does complain of some mild rectal pain. S he does have some lower abdominal pain. Denies any history of GI bleed. Patient has history of hypertension. No other comorbidities reported. The ROS documented in this emergency department record has been reviewed and confirmed by me. Those systems with pertinent positive or negative responses have been documented in the HPI. All other systems are other negative and/or noncontributory. - Related Data Home Medications Medication Instructions Recorded Confirmed Aspirin [[place] Aspirin EC] 81 mg PO W/SUPPER 11/19/18 04/09/24 Metoprolol Succinate [Toprol Xl] 50 mg PO BID-W/MEALS 11/19/18 04/09/24 [place]-3 Fatty Acids/Fish Oil [Fish 1 tab PO W/SUPPER 11/19/18 04/09/24 Oil 1,000 mg Softgel] Simvastatin [Zocor] 20 mg PO HS 11/19/18 04/09/24 Losartan Potassium 100 mg PO DAILY 04/09/24 04/09/24 hydrALAZINE HCL [Apresoline] 25 mg PO BID-W/MEALS 04/09/24 04/09/24 Allergies Allergy/AdvReac Type Severity Reaction Status Date / Time No Known Allergies Allergy Verified 04/09/24 13:07 Review of Systems ROS Statement: Those systems with pertinent positive or pertinent negative responses have been documented in the HPI. ROS Other: All systems not noted in ROS Statement are negative. Past Medical History Past Medical History: Hyperlipidemia, Hypertension History of Any Multi-Drug Resistant Organisms: None Reported Past Surgical History: Tubal Ligation Past Anesthesia/Blood Transfusion Reactions: No Reported Reaction Past Psychological History: No Psychological Hx Reported Smoking Status: Never smoker Past Alcohol Use History: None Reported Past Drug Use History: None Reported - Past Family History Mother Family Medical History: Cancer (Breast cancer), Chest Pain / Angina, Diabetes Mellitus, Myocardial Infarction ([place]) Father Family Medical History: Cancer, Diabetes Mellitus, Myocardial Infarction ([place]) Sister(s) Family Medical History: Diabetes Mellitus General Exam - General Exam Comments Initial Comments: PHYSICAL EXAM: General Impression: Alert and oriented x3, not in acute distress HEENT: Normocephalic atraumatic, extra-ocular movements intact, pupils equal and reactive to light bilaterally, mucous membranes moist. Cardiovascular: Heart regular rate and rhythm Chest: Able to complete full sentences, no retractions, no tachypnea Abdomen: abdomen soft, slight tenderness to the lower abdomen, non-distended, no organomegaly Musculoskeletal: Pulses present and equal in all extremities, no peripheral edema Motor: no focal deficits noted Neurological: CN II-XII grossly intact, no focal motor or sensory deficits noted Skin: Intact with no visualized rashes Psych: Normal affect and mood Rectal exam: Palpable stool and rectal vault, no gross bleeding Limitations: no limitations Course Vital Signs 04/09/24 04/09/24 04/09/24 09:43 10:32 11:00 Temperature 97.9 F Pulse Rate 75 76 79 Respiratory 18 18 20 Rate Blood Pressure 144/99 139/77 134/56 O2 Sat by Pulse 94 L 99 95 Oximetry 04/09/24 13:13 Temperature Pulse Rate 82 Respiratory 16 Rate Blood Pressure 127/57 O2 Sat by Pulse 95 Oximetry Medical Decision Making - Medical Decision Making Was pt. sent in by a medical professional or institution (, PA, SUPERINTENDENT AMMUNITION STORAGE, urgent care, hospital, or custodial...) When possible be specific @ -No Did you speak to anyone other than the patient for history (EMS, parent, family, police, friend...)? What history was obtained from this source @ -No Did you review nursing and triage notes (agree or disagree)? Why? @ -I reviewed and agree with nursing and triage notes Were old charts reviewed (outside hosp., previous admission, EMS record, old EKG, old radiological studies, urgent care reports/EKG's, custodial records)? Report findings @ -No old charts were reviewed Differential Diagnosis (chest pain, altered mental status, abdominal pain women, abdominal pain men, vaginal bleeding, musculoskeletal, weakness, fever, dyspnea, syncope, headache, dizziness, GI bleed, back pain, seizure, CVA, palpatations, mental health)? @ -Differential Abdominal Pain Women: Appendicitis, Cholecystitis, diverticulosis, ischemic bowel, pancreatitis, hepatitis, UTI, gastroenteritis, AAA, incarcerated hernia, bowel obstruction, constipation, inflammatory bowel, hepatitis, peptic ulcer disease, splenic infarction, perforated viscus, vulvitis, ovarian torsion, PID, kidney stone, placenta abruption, this is not meant to be an all-inclusive list EKG interpreted by me (3pts min.). @ -None done X-rays interpreted by me (1pt min.). @ -X-ray shows stool burden CT interpreted by me (1pt min.). @ -CT scan of the abdomen pelvis shows large fecal bolus. Otherwise no other acute processes. U/S interpreted by me (1pt. min.). @ -None done What testing was considered but not performed or refused? (CT, X-rays, U/S, labs)? Why? @ -None What meds were considered but not given or refused? Why? @ -None Did you discuss the management of the patient with other professionals (professionals i.e. , PA, SUPERINTENDENT AMMUNITION STORAGE, lab, RT, psych nurse, social organization professor, mold making plastics sheets supervisor, teacher, agricultural technical officer, employment evaluator/case manager)? Give summary @ -No Was smoking cessation discussed for >3mins.? @ -No Was critical care preformed (if so, how long)? @ -No Were there social determinants of health that impacted care today? How? (Homelessness, low income, unemployed, alcoholism, drug addiction, transportation, low edu. Level, literacy, decrease access to med. care, halfway, rehab)? @ -No Was there de-escalation of care discussed even if they declined (Discuss DNR or withdrawal of care, Hospice)? DNR status @ -No What co-morbidities impacted this encounter? (DM, HTN, Smoking, COPD, CAD, Cancer, CVA, ARF, Chemo, Hep., AIDS, mental health diagnosis, sleep apnea, morbid obesity)? @ -None Was patient admitted / discharged? Hospital course, mention meds given and route, prescriptions, significant lab abnormalities, going to OR and other pertinent info. @ -83-year-old female presents to the emergency department with abdominal pain and constipation. Vital signs are stable. Stool occult blood positive. Laboratory evaluation is unremarkable. No leukocytosis. Patient reevaluated bedside still having some pain. CT scan of the abdomen pelvis ordered. Showed constipation with stool burden. Patient given enema with improvement. Patient will be sent home with some GoLytely to clean up helper banquet with the constipation. Patient advised follow-up with primary care doctor. Undiagnosed new problem with uncertain prognosis? @ -No Drug Therapy requiring intensive monitoring for toxicity (Heparin, Nitro, Insulin, Cardizem)? @ -No Were any procedures done? @ -No Diagnosis/symptom? Acute, or Chronic, or Acute on Chronic? Uncomplicated (without systemic symptoms) or Complicated (systemic symptoms)? @ -Constipation Side effects of treatment? @ -No Exacerbation, Progression, or Severe Exacerbation? @ -No Poses a threat to life or bodily function? How? (Chest pain, [place], [place], pneumonia, PE, COPD, DKA, ARF, appy, cholecystitis, CVA, Diverticulitis, Homicidal, Suicidal, threat to staff... and all critical care pts) @ -No - Lab Data Result diagrams: 04/09/24 10:05 04/09/24 10:05 Lab Results 04/09/24 04/09/24 04/09/24 Range/Units 10:05 10:05 10:05 WBC 9.9 (3.8-10.6) k/uL RBC 4.37 (3.80-5.40) m/uL Hgb 12.6 (11.4-16.0) gm/dL Hct 38.1 (34.0-46.0) % MCV 87.2 (80.0-100.0) fL MCH 28.7 (25.0-35.0) pg MCHC 32.9 (31.0-37.0) g/dL RDW 12.7 (11.5-15.5) % Plt Count 211 (150-450) k/uL MPV 8.5 Neutrophils % 81 % Lymphocytes % 13 % Monocytes % 4 % Eosinophils % 1 % Basophils % 1 % Neutrophils # 7.9 H (1.3-7.7) k/uL Lymphocytes # 1.2 (1.0-4.8) k/uL Monocytes # 0.4 (0-1.0) k/uL Eosinophils # 0.1 (0-0.7) k/uL Basophils # 0.1 (0-0.2) k/uL PT (10.0-12.5) sec INR (<1.2) APTT (22.0-30.0) sec Sodium (137-145) mmol/L Potassium (3.5-5.1) mmol/L Chloride (98-107) mmol/L Carbon Dioxide (22-30) mmol/L Anion Gap mmol/L BUN (7-17) mg/dL Creatinine (0.52-1.04) mg/dL Est GFR (CKD-EPI)AfAm (>60 ml/min/1.73 sqM) Est GFR (CKD-EPI)NonAf (>60 ml/min/1.73 sqM) Glucose (74-99) mg/dL Calcium (8.4-10.2) mg/dL Stool Occult Blood Positive H (Negative) Blood Type O Positive Blood Type Recheck O Pos Bld Type Recheck Status No Antibody Screen NEGATIVE Spec Expiration Date 04/12/2024 - 230404/09/24 04/09/24 Range/Units 10:05 10:05 WBC (3.8-10.6) k/uL RBC (3.80-5.40) m/uL Hgb (11.4-16.0) gm/dL Hct (34.0-46.0) % MCV (80.0-100.0) fL MCH (25.0-35.0) pg MCHC (31.0-37.0) g/dL RDW (11.5-15.5) % Plt Count (150-450) k/uL MPV Neutrophils % % Lymphocytes % % Monocytes % % Eosinophils % % Basophils % % Neutrophils # (1.3-7.7) k/uL Lymphocytes # (1.0-4.8) k/uL Monocytes # (0-1.0) k/uL Eosinophils # (0-0.7) k/uL Basophils # (0-0.2) k/uL PT 10.3 (10.0-12.5) sec INR 0.9 (<1.2) APTT 25.4 (22.0-30.0) sec Sodium 134 L (137-145) mmol/L Potassium 3.9 (3.5-5.1) mmol/L Chloride 107 (98-107) mmol/L Carbon Dioxide 20 L (22-30) mmol/L Anion Gap 7 mmol/L BUN 18 H (7-17) mg/dL Creatinine 0.65 (0.52-1.04) mg/dL Est GFR (CKD-EPI)AfAm >90 (>60 ml/min/1.73 sqM) Est GFR (CKD-EPI)NonAf 82 (>60 ml/min/1.73 sqM) Glucose 107 H (74-99) mg/dL Calcium 9.2 (8.4-10.2) mg/dL Stool Occult Blood (Negative) Blood Type Blood Type Recheck Bld Type Recheck Status Antibody Screen Spec Expiration Date Disposition Clinical Impression: Constipation Disposition: HOME SELF-CARE Condition: Good Instructions (If sedation given, give patient instructions): Constipation (ED) Is patient prescribed a controlled substance at d/c from ED?: No Referrals: None,Stated [REFERRING] - 1-2 days Time of Disposition: 14:11
[2024-04-09 10:33] VITALS: TEMP 97.9
[2024-04-09 10:40] LABS: Basophils # (A) 0.1 k/uL (0-0.2); Basophils % (A) 1 %; Eosinophils # (A) 0.1 k/uL (0-0.7); Eosinophils % (A) 1 %; HCT 38.1 % (34.0-46.0); HGB 12.6 gm/dL (11.4-16.0); Lymphocytes # (A) 1.2 k/uL (1.0-4.8); Lymphocytes % (A) 13 %; MCH 28.7 pg (25.0-35.0); MCHC 32.9 g/dL (31.0-37.0); MCV 87.2 fL (80.0-100.0); Mean Platelet Volume 8.5; Monocytes # (A) 0.4 k/uL (0-1.0); Monocytes % (A) 4 %; Neutrophils # (A) 7.9 k/uL (1.3-7.7); Neutrophils % (A) 81 %; Platelet Count 211 k/uL (150-450); RBC 4.37 m/uL (3.80-5.40); RDW 12.7 % (11.5-15.5); WBC 9.9 k/uL (3.8-10.6)
[2024-04-09 10:55] LABS: INR 0.9 (<1.2); Partial Thromboplastin Time 25.4 sec (22.0-30.0); Prothrombin Time 10.3 sec (10.0-12.5)
--- NOTE | 2024-04-09 10:55 | XR ---
EXAMINATION TYPE: XR abdomen 1V DATE OF EXAM: 04/09/2024 Comparison: None Clinical History: 83-year-old female gi bleed, abdominal pain Findings: Lung bases are clear. No evidence for free intraperitoneal air. Abdominal aortic calcifications noted. Levoconvex scoliosis mid to lower lumbar spine. Osteopenia. Nonobstructive bowel gas pattern. Mild stool burden. No suspicious calcifications are seen. Impression: Mild overall stool burden. No evidence for free air or bowel obstruction. Levoconvex scoliosis.
[2024-04-09 11:06] LABS: African American GFR (CKD) >90 (>60 ml/min/1.73 sqM); Anion Gap 7 mmol/L; Blood Urea Nitrogen 18 mg/dL (7-17); Calcium 9.2 mg/dL (8.4-10.2); Carbon Dioxide 20 mmol/L (22-30); Chloride 107 mmol/L (98-107); Glucose 107 mg/dL (74-99); Non-African American GFR(CKD) 82 (>60 ml/min/1.73 sqM); Potassium 3.9 mmol/L (3.5-5.1); Sodium 134 mmol/L (137-145)
[2024-04-09] MEDS: KETOROLAC 15 MG/ML 1 ML VIAL IVP STA (11:07)
--- NOTE | 2024-04-09 13:08 | CT ---
EXAMINATION TYPE: CT abdomen pelvis w con DATE OF EXAM: 04/09/2024 COMPARISON: 06/18/2022 INDICATION: abd pain DLP: 487.3 mGycm, Automated exposure control for dose reduction was used. CONTRAST: 100ml mL of Isovue 300. Study performed without Oral Contrast TECHNIQUE: Axial images were obtained from above the diaphragm to the pubic rami in the axial plane a t 5 mm thick sections. Reconstructed images are reviewed on the computer in the coronal plane. FINDINGS: Limited CT sections are obtained the lung bases. The lung bases are clear. Moderate size hiatal her dionne is present CT ABDOMEN: Liver: Multiple hepatic cysts are present. Spleen: Normal Pancreas: Normal Adrenal glands: The adrenal glands are normal. Gallbladder: Normal Kidneys: No masses are evident. No hydronephrosis is present. There is a cortical renal cyst on the left, small cortical renal cysts are on the right. Delayed images were obtained through the kidneys Aorta: Vascular calcification is within the aorta. Inferior vena cava: Normal. CT PELVIS: Loops of bowel within the abdomen and pelvis are normal. There is a fecal bolus at the level of t he rectum. Significant fecal retention is not otherwise apparent. Small bowel loops without contrast appear nondilated. Appendix: Normal as visualized. Urinary bladder: Normal. Genitourinary structures: Uterus is unremarkable. Adnexa are normal. Osseous structures: No suspicious lytic or sclerotic lesions. Facet degenerative changes are within t he lumbar spine scoliosis is present. IMPRESSION: 1. Large fecal bolus in the rectum. Correlate for impaction. No significant fecal retention otherwis e apparent. 2. Multiple hepatic and renal cysts present previously.
[2024-04-09 14:00] VITALS: RESP 16
[2024-04-09] MEDS: PEG 3350 (236 GM/BTL) + LYTES 4,000 ML BOTTLE PO ONE (14:51)
[2024-04-09 15:43] VITALS: BP 121/56; PULSE 75
== END 2024-04-09 15:00 | disposition home or self-care (01) ==
LOC: EC 09:42 → SUPCPDRO 09:42 → EC 15:00
DX: K59.00 Constipation, unspecified (principal); K76.89 Other specified diseases of liver
CPT/HCPCS: 36415; 93005; 86900; 86901; 80048; 85025; 85610; 85730; 86850; 82272; 74018; 74177; 99285; 96374; J1885; Q9967

== ENCOUNTER → 2024-05-27 | Outpatient (CLI) | payer MEDICARE ==
--- NOTE | 2024-05-28 10:01 | CA ---
Transthoracic Echo Report Name: Zonia Acevedo Age: 83 Gender: F : 1940 Exam Date: 05/27/2024 12:54 Exam Location: [facility] Ht (in): 65 Wt (lb): 116 Ordering Physician: Rogerio Toth MD Attending/Referring Phys: Recruiting And Selection Consultant Geovanna Seth RDCS Procedure CPT: Indications: I35.1 NONRHEUMATIC INSUFF Cardiac Hx: Technical Quality: Fair Contrast 1: Total Dose (mL): Contrast 2: Total Dose (mL): MEASUREMENTS (Male / Female) Normal Values 2D ECHO LV Diastolic Diameter PLAX 4.6 cm 4.2 - 5.9 / 3.9 - 5.3 cm LV Systolic Diameter PLAX 3.1 cm IVS Diastolic Thickness 0.7 cm 0.6 - 1.0 / 0.6 - 0.9 cm LVPW Diastolic Thickness 0.6 cm 0.6 - 1.0 / 0.6 - 0.9 cm LV Relative Wall Thickness 0.3 LVOT Diameter 1.9 cm LV Diastolic Volume MOD BP 74.9 cm??? 67 - 155 / 56 - 104 cm??? LV Systolic Volume MOD BP 30.0 cm??? 22 - 58 / 19 - 49 cm??? LV Ejection Fraction MOD BP 59.9 % >= 55 % LV Cardiac Index MOD BP 1969.9 cm???/min???m??? LV Diastolic Volume MOD 4C 85.0 cm??? LV Systolic Volume MOD 4C 37.3 cm??? LV Ejection Fraction MOD 4C 56.1 % LV Cardiac Index MOD 4C 2095.7 cm???/min???m??? LV Diastolic Length 4C 7.3 cm LV Systolic Length 4C 6.0 cm LV Diastolic Volume MOD 2C 62.6 cm??? LV Systolic Volume MOD 2C 22.0 cm??? LV Ejection Fraction MOD 2C 64.8 % LV Cardiac Index MOD 2C 1782.1 cm???/min???m??? LV Diastolic Length 2C 6.9 cm LV Systolic Length 2C 5.4 cm LA Volume 44.2 cm??? 18 - 58 / 22 - 52 cm??? LA Volume Index 28.6 cm???/m??? 16 - 28 cm???/m??? Ascending Aorta Diameter 3.5 cm DOPPLER AV Peak Velocity 134.7 cm/s AV Peak Gradient 7.3 mmHg AV Mean Velocity 94.8 cm/s AV Mean Gradient 4.0 mmHg AV Velocity Time Integral 31.0 cm LVOT Peak Velocity 95.7 cm/s LVOT Peak Gradient 3.7 mmHg LVOT Velocity Time Integral 21.0 cm LVOT Stroke Volume 60.5 cm??? LVOT Stroke Volume Index 38.6 ml/m??? LVOT Cardiac Index 2658.3 cm???/min???m??? AV Area Cont Eq vti 1.9 cm??? AV Area Cont Eq pk 2.0 cm??? MV Area PHT 4.6 cm??? Mitral E Point Velocity 64.2 cm/s Mitral A Point Velocity 96.7 cm/s Mitral E to A Ratio 0.7 MV Deceleration Time 164.0 ms TR Peak Velocity 263.2 cm/s TR Peak Gradient 27.7 mmHg Right Atrial Pressure 5.0 mmHg Pulmonary Artery Systolic Pressu 32.7 mmHg Right Ventricular Systolic Press 32.7 mmHg PV Peak Velocity 89.6 cm/s PV Peak Gradient 3.2 mmHg FINDINGS Left Ventricle Left ventricular ejection fraction is estimated at 55-60 %. Left ventricular cavity size normal. Left ventricular wall thickness normal. No obvious regional wall motion abnormalities. Right Ventricle Normal right ventricular size and function. Right ventricular systolic pressure within normal limits. Right Atrium Normal right atrial size. Left Atrium Normal left atrial size. Mitral Valve Structurally normal mitral valve. No evidence for mitral valve prolapse. No mitral stenosis. Trace mitral regurgitation. Aortic Valve Trileaflet aortic valve. No aortic valve stenosis or regurgitation. Tricuspid Valve Structurally normal tricuspid valve. No tricuspid stenosis. Mild tricuspid regurgitation. Pulmonic Valve Structurally normal pulmonic valve. No pulmonic stenosis. No pulmonic regurgitation Pericardium No pericardial effusion. Aorta Normal size aortic root and proximal ascending aorta. CONCLUSIONS Left ventricular ejection fraction 55-60% RVSP 32 Trace mitral regurgitation Mild tricuspid regurgitation No pericardial effusion Previewed by: Dr. Rory Sellers DO (Electronically Signed) Final Date: 28 May 2024 10:00
== END | disposition home or self-care (01) ==
LOC: RADECHMAIN 12:46
PROVIDERS: ATTEND Internal Medicine
DX: I35.1 Nonrheumatic aortic (valve) insufficiency (principal); I08.1 Rheumatic disorders of both mitral and tricuspid valves
CPT/HCPCS: 93306

== ENCOUNTER → 2025-03-25 | Outpatient (CLI) | payer MEDICARE ==
--- NOTE | 2025-03-25 11:45 | MM ---
Reason for Exam: Screening (asymptomatic). Last mammogram was performed 1 year(s) and 1 month(s) ago. Patient History: Menarche at age 13. First Full-Term at age 20. Postmenopausal. Hormonal Contraceptives for 10 years from age 25 until age 35. Mother had breast cancer, age 70. Risk Values: Sydney 5 year model risk: 2.2%. NCI Lifetime model risk: 2.2%. Prior Study Comparison: 02/22/2022 Bilateral Screening Mammogram, [facility]. 03/05/2023 Bilateral MG 3D screening mammo w/cad, [facility]. 03/09/2024 Bilateral MG 3D screening mammo w/cad, [facility]. Tissue Density: The breasts are heterogeneously dense, which may obscure small masses. Findings: Analyzed By CAD. There are benign-appearing round and vascular calcifications bilaterally redemonstrated. Small benign-appearing linear calcifications in right breast are again seen. There is no suspicious group of microcalcifications or new suspicious mass in either breast. Overall Assessment: Benign, BI-RAD 2 Management: Screening Mammogram of both breasts in 1 year. . Patient should continue monthly self-breast exams. A clinical breast exam by your physician is recommended on an annual basis. This exam should not preclude additional follow-up of suspicious palpable abnormalities. Note on Sydney scores and lifetime risk: 1. A Sydney score greater than 3% is considered moderate risk. If this is the case, consider specialist referral to assess eligibility for a risk reducing agent. 2. If overall lifetime risk for the development of breast cancer is 20% or higher, the patient may qualify for future screening with alternating mammogram and breast MRI. [facility], , 03/25/2025 11:41 AM. Electronically signed and approved by: Duy Mondragon M.D.
--- NOTE | 2025-03-25 21:27 | XR ---
EXAMINATION TYPE: XR shoulder complete 3 views LT DATE OF EXAM: 03/25/2025 11:42 AM COMPARISON: None CLINICAL INDICATION: Female, 84 years old with history of M81.0 AGE-RELATED OSTEOPOROSIS W/; PHH, chanel n FINDINGS: Diffuse osteopenia. There is some sclerosis at the greater tuberosity. Subacromial space is preserved . AC joint and glenohumeral joint appear intact and congruent. No acute fracture, subluxation, or dis location. Atherosclerotic calcifications throughout the thoracic aorta. IMPRESSION: 1. Some bony changes suggesting chronic rotator cuff tendinopathy. 2. Osteopenia. 3. No acute osseous abnormality seen. [facility], , 03/25/2025 9:24 PM
== END | disposition home or self-care (01) ==
LOC: RADMAMWWP 11:07
PROVIDERS: ATTEND Internal Medicine
DX: Z12.31 Encounter for screening mammogram for malignant neoplasm of breast (principal); R92.333 Mammographic heterogeneous density, bilateral breasts; M81.0 Age-related osteoporosis without current pathological fracture; M85.812 Other specified disorders of bone density and structure, left shoulder; Z78.0 Asymptomatic menopausal state; Z80.3 Family history of malignant neoplasm of breast
CPT/HCPCS: 77063; 77067